=== PATIENT | male | born 1940 | race Caucasian/White ===

== ENCOUNTER → 2016-12-15 | Outpatient (CLI) | payer OTHER ==
[2016-02-03 17:04] VITALS: BP 170/82
== END ==
LOC: LAB 15:26
PROVIDERS: ATTEND Specialist
DX: M17.0 Bilateral primary osteoarthritis of knee (principal); Z96.651 Presence of right artificial knee joint
CPT/HCPCS: 36415; 85652; 86140

== ENCOUNTER 2017-06-20 16:56 | Observation (INO) | payer OTHER ==
[2017-06-20] MEDS ORDERED: TUSSIONEX PENNKINETIC SUSP PO PRN (17:41)
[2017-06-20] MEDS ORDERED: ZOFRAN INJ 4 MG VIAL IVP PRN (17:41)
[2017-06-20] MEDS ORDERED: NORCO 5/325 MG TAB PO PRN (17:41)
[2017-06-20 19:01] LABS: BASOPHILS % (AUTO) 0.3 % (0.2-1.0); HEMATOCRIT 35.9 % (42.0-54.0); HEMOGLOBIN 12.5 g/dL (13.5-18.0); LYMPHOCYTES # (AUTO) 0.5 X10^3/uL (1.3-2.9); LYMPHOCYTES % (AUTO) 5.3 % (21.0-51.0); MEAN CORPUSCULAR HEMOGLOBIN 28.2 pg (27.0-34.0); MEAN CORPUSCULAR HGB CONC 34.8 g/dL (33.0-35.0); MONOCYTES # (AUTO) 0.9 x10^3/uL (0.3-0.8); MONOCYTES % (AUTO) 10.7 % (0.0-13.0); NEUTROPHILS # (AUTO) 7.3 x10^3/uL (2.2-4.8); NEUTROPHILS % (AUTO) 83.7 % (42.0-75.0); PLATELET COUNT 165 X10^3/uL (150.0-450.0); RED BLOOD COUNT 4.43 X10^6/uL (4.7-6.0); RED CELL DISTRIBUTION WIDTH 14.1 % (11.6-16.5); WHITE BLOOD COUNT 8.7 X10^3/uL (3.6-10.0)
[2017-06-20 19:17] LABS: ALANINE AMINOTRANSFERASE 21 Units/L (12-78); ALBUMIN 3.7 g/dL (3.4-5.0); ALKALINE PHOSPHATASE 36 Units/L (46-116); ASPARTATE AMINO TRANSFERASE 33 Units/L (15-37); BLOOD UREA NITROGEN 34 mg/dL (7-18); CALCIUM 8.7 mg/dL (8.5-10.1); CARBON DIOXIDE 26.1 mmol/L (21-32); CHLORIDE 93 mmol/L (98-107); COR NA(FOR HYPERGLY) 134 mmol/L (136-145); CREATININE 1.44 mg/dL (0.70-1.30); SODIUM 131 mmol/L (136-145); TOTAL PROTEIN 7.9 g/dL (6.4-8.2); eGFR BLACK RACES > 60 (>60); eGFR NON BLACK RACES 51 (>60)
[2017-06-20] MEDS ORDERED: SALINE 3% 15 ML NEB TX NEB ONE (19:31)
[2017-06-20 19:33] VITALS: BMI 28.7
[2017-06-20] MEDS ORDERED: PREVNAR 13 IM ONE (19:33)
[2017-06-20] MEDS ORDERED: PHARMACY CONSULT - DOSE _____ XX SCH (20:00)
[2017-06-20] MEDS: DUONEB 0.5 MG/3 MG NEB SCH (20:15)
[2017-06-20] MEDS ORDERED: LEVAQUIN PREMIX IV 500 MG 500 MG/100 ML BAG IV ONE (21:00)
[2017-06-20] MEDS ORDERED: FORTAZ or TAZICEF INJ 1 GM in NS 50 ML IV + SPIKE MINIBAG* 50 ML IV SCH (21:00)
[2017-06-20] MEDS: NS 1000 ML 1,000 ML IV SCH (21:43)
[2017-06-20] MEDS: ROBITUSSIN DM PO SCH (22:00)
[2017-06-21] MEDS: DUONEB 0.5 MG/3 MG NEB SCH ×5 (00:28→20:41)
[2017-06-21] MEDS ORDERED: PREVNAR 13 IM ONE (00:29)
[2017-06-21] MEDS: TYLENOL 325 MG TAB PO PRN (01:59)
[2017-06-21 06:20] LABS: BASOPHILS % (AUTO) 0.2 % (0.2-1.0); HEMATOCRIT 31.4 % (42.0-54.0); LYMPHOCYTES # (AUTO) 0.8 X10^3/uL (1.3-2.9); LYMPHOCYTES % (AUTO) 14.2 % (21.0-51.0); MEAN CORPUSCULAR HEMOGLOBIN 28.5 pg (27.0-34.0); MEAN CORPUSCULAR HGB CONC 35.2 g/dL (33.0-35.0); MEAN CORPUSCULAR VOLUME 80.8 fL (80.0-100.0); MEAN PLATELET VOLUME 7.3 fL (7.4-11.0); MONOCYTES # (AUTO) 0.8 x10^3/uL (0.3-0.8); MONOCYTES % (AUTO) 13.4 % (0.0-13.0); NEUTROPHILS # (AUTO) 4.3 x10^3/uL (2.2-4.8); NEUTROPHILS % (AUTO) 72.2 % (42.0-75.0); PLATELET COUNT 138 X10^3/uL (150.0-450.0); RED BLOOD COUNT 3.88 X10^6/uL (4.7-6.0); RED CELL DISTRIBUTION WIDTH 13.8 % (11.6-16.5)
[2017-06-21 06:50] LABS: ALANINE AMINOTRANSFERASE 19 Units/L (12-78); ALKALINE PHOSPHATASE 29 Units/L (46-116); ASPARTATE AMINO TRANSFERASE 33 Units/L (15-37); BLOOD UREA NITROGEN 27 mg/dL (7-18); CALCIUM 8.3 mg/dL (8.5-10.1); CARBON DIOXIDE 22.7 mmol/L (21-32); CHLORIDE 98 mmol/L (98-107); COR CA(FOR HYPOALB) 9.1 mg/dL (8.5-10.1); COR NA(FOR HYPERGLY) 134 mmol/L (136-145); CREATININE 1.06 mg/dL (0.70-1.30); SODIUM 132 mmol/L (136-145); TOTAL PROTEIN 6.7 g/dL (6.4-8.2); eGFR BLACK RACES > 60 (>60); eGFR NON BLACK RACES > 60 (>60)
--- NOTE | 2017-06-21 07:08 | RAD ---
HISTORY: Injury, fall, right rib pain Study: Right ribs, PA and lateral chest Comparison: 04/21/2010 report Findings: The heart is within normal limits in size. The mag are normal. The lung lazcano are clear. No pleural effusions are identified. No pneumothorax is present. The right ribs are intact. IMPRESSION: Intact right ribs Lungs clear Reported By:
--- NOTE | 2017-06-21 07:29 | RAD ---
HISTORY: Shortness of breath Study: Chest AP portable Comparison: 06/20/2017 Findings: The trachea is midline. The cardiac silhouette is unremarkable. The lungs are clear without focal i nfiltrate or effusion. The bony thorax is unremarkable. IMPRESSION: 1. No acute cardiopulmonary disease. Reported By:
[2017-06-21] MEDS: ROBITUSSIN DM PO SCH ×4 (08:37→21:36)
[2017-06-21] MEDS: FORTAZ or TAZICEF INJ 1 GM in NS 50 ML IV + SPIKE MINIBAG* 50 ML IV SCH ×3 (08:37→21:36)
[2017-06-21] MEDS ORDERED: LEVAQUIN PREMIX IV 750 MG 750 MG/150 ML BAG IV SCH (09:00)
[2017-06-21 13:48] LABS: CRYPTOSPORIDIUM PARVUM ANTIGEN NEGATIVE (NEGATIVE); GIARDIA LAMBLIA ANTIGEN NEGATIVE (NEGATIVE)
[2017-06-21] MEDS: NS 1000 ML 1,000 ML IV SCH (14:27)
[2017-06-21] MEDS: HumuLIN R SUBCUT PRN ×2 (16:40→21:36)
--- NOTE | 2017-06-21 16:48 | DR.UPDATE ---
H&P Update History and Physical Update: PATIENT WAS SEEN IN THE OFFICE ON 06/20/17. A H&P WAS COMPLETED PRIOR TO ADMISSION. PATIENT ALSO HAD COMPLAINTS OF COUGH AND SHORTNESS OF BREATH. BILATERAL RHONCHI NOTED TO AUSCULTATION. PATIENT WAS ADMITTED ON THE PNEUMONIA PROTOCOL. Changes noted: NO Yes with the following:
--- NOTE | 2017-06-21 17:09 | CT ---
HISTORY: Orthostatics symptoms. Fall without loss of consciousness. Study: Computed tomography of the brain: Multiple axial images were obtained throughout the brain. Intravascular contrast was not administered. Radiation dose reduction techniques utilized. Comparison: None Findings: Overall examination of the brain reveals mild to moderate cerebral atrophy and moderate white matter disease. Mild cerebellar atrophy is noted. I see no evidence of cortical effacement. The burgess whit e differentiation is well maintained. I see no evidence of subarachnoid hemorrhage, subdural hematom a or epidural hematoma. The calvarium appears be intact. The frontal sinuses are clear. The orbits as visualized are clear. Minimal opacification is noted in a few ethmoid air cells. The sphenoid s inus is clear. There is a small polyp versus mucous retention cyst in the floor of the left maxillar y sinus. Moderately severe calcification is noted in the carotid siphon. The mastoids are hypo aera ileana but clear. The IAC's are symmetric. The pituitary fossa is normal. IMPRESSION: 1. Moderate cerebral atrophy and moderate white matter disease with mild cerebellar atrophy. 2. I see no evidence of acute intracranial hemorrhage or infarction. 3. Minimal sinus disease. Reported By:
[2017-06-21] MEDS ORDERED: NS 50 ML IV 50 ML IV ONE (20:11)
[2017-06-21] MEDS ORDERED: FORTAZ or TAZICEF INJ ONE (20:12)
--- NOTE | 2017-06-21 20:45 | PCM.PROG ---
Progress Note - Progress Note for Day of Date: 06/21/17 - Subjective Subjective: WAS ADMITTED FOR BRONCHOPNEUMONIA, RIGHT SIDE RIB PAIN, AND GENERALIZED WEAKNESS. TODAY, HE IS ALERT AND ORIENTED, LYING IN BED ON MORNING ROUNDS. PATIENT'S IS AT BEDSIDE. HE IS NOTED WITH COMPLAINTS OF SHORTNESS OF BREATH AND CONTINUES WITH PAIN TO THE RIGHT SIDE RIBS. PATIENT REPORTS FALLING OVER THE WEEKEND. PATIENT REPORTS THAT WEAKNESS HAS SOMEWHAT IMPROVED SINCE YESTERDAY, HOWEVER, HE CONTINUES WITH UNSTEADY GAIT. HE REPORTS A NON-PRODUCTIVE COUGH AT THIS TIME AND INABILITY TO TAKE DEEP BREATHS. ON EXAMINATION, LUNGS ARE NOTED WITH RHONCHI BILATERALLY TO AUSCULTATION. ABDOMEN IS ROUND, SOFT, AND NON-TENDER WITH HYPERACTIVE BOWEL SOUNDS NOTED IN ALL QUADRANTS. HE REPORTS DIARRHEA AND VOMITING FOR 3 DAYS PRIOR TO ADMISSION. HIS VITAL SIGNS THIS MORNING ARE 100.5-80-20-97% RA, 128/70. PATIENT'S TEMPERATURE WAS 102.1 AT 2AM. ABNORMAL LAB VALUES THIS MORNING INCLUDE THE FOLLOWING: RBC 3.88, HGB 11.0, HCT 31.4, SODIUM 132, POTASSIUM 3.1, BUN 27, GLUCOSE 197, CALCIUM 8.3, ALK PHOS 29, ALBUMIN 3.0, A/G RATIO 0.8. STOOL STUDIES WERE OBTAINED. STOOL CULTURES PENDING. SPUTUM CULTURES REPORT GROWTH OF GRAM POSITIVE RODS, GRAM POSITIVE COCCI, AND GRAM NEGATIVE DIPLOCOCCI. A CHEST XRAY WAS OBTAINED THIS MORNING AND REPORT NO ACUTE CARDIOPULMONARY DISEASE. A BRAIN CT WAS ALSO OBTAINED TODAY. IT REPORTED MODERATE CEREBRAL ATROPHY AND MODERATE WHITE MATTER DISEASE WITH MILD CEREBELLAR ATROPHY. NO EVIDENCE OF ACUTE INTRACRANIAL HEMORRHAGE OR INFARCTION. MINIMAL SINUS DISEASE. RIB SERIES THAT WAS OBTAINED ON ADMISSION REPORTED NEGATIVE FOR ACUTE FRACTURE. TODAY, WE WILL CONTINUE WITH CURRENT PLAN OF CARE FOR TREATMENT OF BRONCHOPNEUMONIA. WE WILL CONTINUE WITH IV FLUIDS FOR DEHYDRATION. WE PLAN TO FOLLOW UP WITH AM LABS AND CHEST XRAY AND CONTINUE TO MONITOR PATIENT. - Past Medical Family Social History Past Med/Fam/Surg Hx: No changes since H&P Allergies: Allergies No Known Drug Allergies Allergy (Verified 06/20/17 17:57) - Review of Systems ROS: No change since H&P - Vital Signs and I&O's Vital Signs: Temperature 100.4 F Pulse Rate [Left Brachial] 88 Pulse Rate 82 Respiratory Rate 20 Blood Pressure [Right Arm] 118/62 Blood Pressure [Left Arm] 139/77 Blood Pressure 170/82 O2 Sat by Pulse Oximetry 96 Intake and Output: Intake & Output 06/19/17 06/20/17 06/21/17 06/22/17 11:59 11:59 11:59 11:59 Intake Total 750 1458 Output Total 550 600 Balance 200 858 - Physical Exam Oriented: Normal Eyes: Normal. negative: Blurred Vision, Diplopia, Photophobia Ear: Normal. negative: Abrasion, Laceration Nose: Normal Throat: Dry Respiratory: Right, Left, Generalized, Rhonchi Cardiovascular: Normal : Normal Auscultation: Bowel Sounds: Increased Palpation: Normal Tenderness: Normal. negative: Rebound, Guarding, Rigidity Skin: Normal. negative: Rash, Diaphoresis, Wound Musculoskeletal: Right (RIGHT SIDE RIB PAIN ), Tender Psychiatric: Normal Mood Description: Calm Affect: Normal Speech Pattern: Clear, Appropriate - Laboratory and Diagnostics Result Diagrams: 06/21/17 05:53 06/21/17 05:53 Labs: 06/21/17 10:53 Stool - Final 06/20/17 21:40 Sputum - Expectorated Sputum Sputum Culture - Preliminary 06/20/17 21:40 Sputum - Expectorated Sputum - Final Laboratory WBC 6.0 X10^3/uL (3.6-10.0) 06/21/17 05:53 RBC 3.88 X10^6/uL (4.7-6.0) L 06/21/17 05:53 Hgb 11.0 g/dL (13.5-18.0) L 06/21/17 05:53 Hct 31.4 % (42.0-54.0) L 06/21/17 05:53 MCV 80.8 fL (80.0-100.0) 06/21/17 05:53 MCH 28.5 pg (27.0-34.0) 06/21/17 05:53 MCHC 35.2 g/dL (33.0-35.0) H 06/21/17 05:53 RDW 13.8 % (11.6-16.5) 06/21/17 05:53 Plt Count 138 X10^3/uL (150.0-450.0) L 06/21/17 05:53 MPV 7.3 fL (7.4-11.0) L 06/21/17 05:53 Neut % 72.2 % (42.0-75.0) 06/21/17 05:53 Lymph % 14.2 % (21.0-51.0) L 06/21/17 05:53 [place] % 13.4 % (0.0-13.0) H 06/21/17 05:53 Eos % 0.0 % (0.9-2.9) L 06/21/17 05:53 Baso % 0.2 % (0.2-1.0) 06/21/17 05:53 Neut # 4.3 x10^3/uL (2.2-4.8) 06/21/17 05:53 Lymph # 0.8 X10^3/uL (1.3-2.9) L 06/21/17 05:53 [place] # 0.8 x10^3/uL (0.3-0.8) 06/21/17 05:53 Eos # 0.0 x10^3/uL (0.0-0.2) 06/21/17 05:53 Baso # 0.0 X10^3/uL (0.0-0.1) 06/21/17 05:53 Absolute Nucleated RBC 0.0 /100WBC 06/21/17 05:53 Sodium 132 mmol/L (136-145) L 06/21/17 05:53 Corrected Sodium 134 mmol/L (136-145) L 06/21/17 05:53 Potassium 3.1 mmol/L (3.5-5.1) L 06/21/17 05:53 Chloride 98 mmol/L (98-107) 06/21/17 05:53 Carbon Dioxide 22.7 mmol/L (21-32) 06/21/17 05:53 BUN 27 mg/dL (7-18) H 06/21/17 05:53 Creatinine 1.06 mg/dL (0.70-1.30) 06/21/17 05:53 Est GFR (MDRD) Af Amer > 60 (>60) 06/21/17 05:53 Est GFR (MDRD) Non-Af > 60 (>60) 06/21/17 05:53 Glucose 197 mg/dL (65-99) H 06/21/17 05:53 POC Glucose (mg/dL) 223 mg/dL (65-99) H 06/21/17 16:23 Calcium 8.3 mg/dL (8.5-10.1) L 06/21/17 05:53 Corrected Calcium 9.1 mg/dL (8.5-10.1) 06/21/17 05:53 Total Bilirubin 0.50 mg/dL (0.2-1.0) 06/21/17 05:53 AST 33 Units/L (15-37) 06/21/17 05:53 ALT 19 Units/L (12-78) 06/21/17 05:53 Alkaline Phosphatase 29 Units/L (46-116) L 06/21/17 05:53 Total Protein 6.7 g/dL (6.4-8.2) 06/21/17 05:53 Albumin 3.0 g/dL (3.4-5.0) L 06/21/17 05:53 Globulin 3.7 g/dL (2.5-4.5) 06/21/17 05:53 Albumin/Globulin Ratio 0.8 Ratio (1.1-2.1) L 06/21/17 05:53 Stool Description Container 06/21/17 10:53 Stl Occult Blood (IFOB) Negative (NEGATIVE) 06/21/17 10:53 Stl C. diff Tox B Gene Negative (NEGATIVE) 06/21/17 10:53 Stl C. diff 027-NAP1-BI Negative (NEGATIVE) 06/21/17 10:53 Cryptosporid parvum Ag Negative (NEGATIVE) 06/21/17 10:53 E. histolytica Antigen Negative (NEGATIVE) 06/21/17 10:53 Giardia lamblia Ag Negative (NEGATIVE) 06/21/17 10:53 - Plan (1) Bronchopneumonia Status: Acute Plan: CONTINUE FORTAZ 1GM IV Q8H, CONTINUE LEVAQUIN 250MG IV DAILY, CONTINUE DUONEBS, CONTINUE TUSSIONEX AND ROBITUSSIN FOR COUGH, CONTINUE SUPPLEMENTAL OXYGEN, CONTINUE TO MONITOR (2) Dehydration Status: Acute Plan: CONTINUE NORMAL SALINE AT 75ML/HR. CONTINUE TO MONITOR (3) Generalized weakness Status: Acute Plan: CONTINUE NORMAL SALINE AT 75ML/HR, PT/OT CONSULT, CONTINUE TO MONITOR
[2017-06-21] MEDS: SNACK - Diabetic Appropriate PO SCH (21:16)
[2017-06-21] MEDS: LEVAQUIN PREMIX IV 250 MG 250 MG/50 ML BAG IV SCH (21:16)
[2017-06-21] MEDS ORDERED: PATIENT'S HOME MEDICATION (Metformin Hcl [Metformin Hcl] 1,000 MG) PO SCH (22:00)
[2017-06-21] MEDS: GLUCOPHAGE PO SCH (23:09)
[2017-06-22] MEDS: DUONEB 0.5 MG/3 MG NEB SCH ×6 (01:10→20:42)
[2017-06-22] MEDS: NS 1000 ML 1,000 ML IV SCH ×3 (03:28→17:33)
[2017-06-22] MEDS ORDERED: FORTAZ or TAZICEF INJ ONE (05:39)
[2017-06-22] MEDS ORDERED: NS 50 ML IV 50 ML IV ONE (05:39)
[2017-06-22] MEDS ORDERED: GLUCOPHAGE ONE ×2 (05:46→17:16)
[2017-06-22 05:47] LABS: BASOPHILS % (AUTO) 0 % (0.2-1.0); HEMATOCRIT 30.8 % (42.0-54.0); LYMPHOCYTES # (AUTO) 0.7 X10^3/uL (1.3-2.9); LYMPHOCYTES % (AUTO) 15.6 % (21.0-51.0); MEAN CORPUSCULAR HEMOGLOBIN 28.8 pg (27.0-34.0); MEAN CORPUSCULAR HGB CONC 35.8 g/dL (33.0-35.0); MEAN CORPUSCULAR VOLUME 80.6 fL (80.0-100.0); MEAN PLATELET VOLUME 7.3 fL (7.4-11.0); MONOCYTES # (AUTO) 0.8 x10^3/uL (0.3-0.8); MONOCYTES % (AUTO) 17.5 % (0.0-13.0); NEUTROPHILS % (AUTO) 66.9 % (42.0-75.0); PLATELET COUNT 142 X10^3/uL (150.0-450.0); RED BLOOD COUNT 3.82 X10^6/uL (4.7-6.0); RED CELL DISTRIBUTION WIDTH 13.6 % (11.6-16.5); WHITE BLOOD COUNT 4.5 X10^3/uL (3.6-10.0)
[2017-06-22] MEDS: TYLENOL 325 MG TAB PO PRN (05:50)
[2017-06-22] MEDS: FORTAZ or TAZICEF INJ 1 GM in NS 50 ML IV + SPIKE MINIBAG* 50 ML IV SCH (05:56)
[2017-06-22] MEDS: HumuLIN R SUBCUT PRN ×3 (05:57→17:01)
[2017-06-22 06:22] LABS: ALANINE AMINOTRANSFERASE 18 Units/L (12-78); ALBUMIN 2.9 g/dL (3.4-5.0); ALKALINE PHOSPHATASE 29 Units/L (46-116); ASPARTATE AMINO TRANSFERASE 31 Units/L (15-37); BLOOD UREA NITROGEN 14 mg/dL (7-18); CALCIUM 7.9 mg/dL (8.5-10.1); CARBON DIOXIDE 25.8 mmol/L (21-32); CHLORIDE 100 mmol/L (98-107); COR CA(FOR HYPOALB) 8.8 mg/dL (8.5-10.1); COR NA(FOR HYPERGLY) 136 mmol/L (136-145); CREATININE 0.93 mg/dL (0.70-1.30); SODIUM 135 mmol/L (136-145); TOTAL PROTEIN 6.7 g/dL (6.4-8.2); eGFR BLACK RACES > 60 (>60); eGFR NON BLACK RACES > 60 (>60)
[2017-06-22] MEDS: GLUCOPHAGE PO SCH ×2 (06:33→17:37)
[2017-06-22] MEDS ORDERED: MAG-OX TAB PO PRN ×2 (06:42→06:52)
[2017-06-22] MEDS ORDERED: K-RIDER 10 MEQ/NS 100 ML 10 MEQ/100 ML BAG IV PRN ×2 (06:42→06:52)
[2017-06-22] MEDS ORDERED: MAGNESIUM SULFATE 1 GM/100 mL PREMIX 1 GM/100 ML BAG IV PRN ×2 (06:42→06:52)
[2017-06-22] MEDS ORDERED: K-LYTE EFFERVESCENT PO PRN (06:42)
[2017-06-22] MEDS ORDERED: GLUCOPHAGE PO SCH (07:00)
[2017-06-22] MEDS: K-LYTE EFFERVESCENT PO PRN ×2 (07:43→12:30)
[2017-06-22] MEDS: ASPIRIN EC 81 MG PO SCH (08:15)
--- NOTE | 2017-06-22 08:49 | RAD ---
Findings: Examination: Chest, portable AP History: Cough and SOB Comparison reference: 06/21/2017 Findings: Continued normal heart size with clear lungs. There is no evidence for pneumothorax, pneumo max or large pleural effusion. Impression: No acute abnormality demonstrated. Reported By:
[2017-06-22] MEDS ORDERED: LISINOPRIL 30 MG PO SCH (09:00)
[2017-06-22] MEDS: ROBITUSSIN DM PO SCH ×5 (09:14→22:50)
[2017-06-22] MEDS: ZESTRIL TAB 10 MG PO SCH ×2 (09:15→21:44)
[2017-06-22] MEDS: FORTAZ or TAZICEF INJ 1 GM in NS 50 ML IV 50 ML IV SCH ×2 (13:54→21:43)
--- NOTE | 2017-06-22 14:39 | RAD ---
Examination: KUB History: Abdominal pain and distention Findings: There is moderately severe distention of the colon including portions of the rectosigmoid. Gas is present in the rectum. The retroperitoneal structures are obscured. There is no evidence for m ass, ascites or pathologic calcification. Impression: Intestinal distention is most consistent with ileus. A distal colon obstruction is not ex cluded, but is considered less likely. Correlate clinically with follow-up imaging as appropriate. Reported By:
[2017-06-22] MEDS ORDERED: NORVASC TAB 5 MG PO SCH (21:00)
[2017-06-22] MEDS ORDERED: FLORINEF PO SCH (21:00)
[2017-06-22] MEDS ORDERED: PRAVACHOL PO SCH (21:00)
[2017-06-22] MEDS: LEVAQUIN PREMIX IV 250 MG 250 MG/50 ML BAG IV SCH (21:44)
[2017-06-22] MEDS: SNACK - Diabetic Appropriate PO SCH (21:49)
[2017-06-23 05:22] LABS: BASOPHILS % (AUTO) 0.4 % (0.2-1.0); EOSINOPHILS # (AUTO) 0.2 x10^3/uL (0.0-0.2); EOSINOPHILS % (AUTO) 4.5 % (0.9-2.9); HEMATOCRIT 30.7 % (42.0-54.0); HEMOGLOBIN 10.7 g/dL (13.5-18.0); LYMPHOCYTES # (AUTO) 0.8 X10^3/uL (1.3-2.9); LYMPHOCYTES % (AUTO) 15.9 % (21.0-51.0); MEAN CORPUSCULAR HEMOGLOBIN 28.2 pg (27.0-34.0); MEAN CORPUSCULAR HGB CONC 34.7 g/dL (33.0-35.0); MEAN CORPUSCULAR VOLUME 81.3 fL (80.0-100.0); MEAN PLATELET VOLUME 7.3 fL (7.4-11.0); MONOCYTES # (AUTO) 0.7 x10^3/uL (0.3-0.8); MONOCYTES % (AUTO) 12.7 % (0.0-13.0); NEUTROPHILS # (AUTO) 3.4 x10^3/uL (2.2-4.8); NEUTROPHILS % (AUTO) 66.5 % (42.0-75.0); PLATELET COUNT 155 X10^3/uL (150.0-450.0); RED BLOOD COUNT 3.77 X10^6/uL (4.7-6.0); RED CELL DISTRIBUTION WIDTH 13.8 % (11.6-16.5); WHITE BLOOD COUNT 5.1 X10^3/uL (3.6-10.0)
[2017-06-23] MEDS ORDERED: GLUCOPHAGE ONE (05:29)
[2017-06-23] MEDS: DUONEB 0.5 MG/3 MG NEB SCH ×2 (05:30→09:39)
[2017-06-23] MEDS: FORTAZ or TAZICEF INJ 1 GM in NS 50 ML IV 50 ML IV SCH (05:35)
[2017-06-23 05:36] LABS: ALANINE AMINOTRANSFERASE 21 Units/L (12-78); ALBUMIN 2.9 g/dL (3.4-5.0); ALKALINE PHOSPHATASE 30 Units/L (46-116); ASPARTATE AMINO TRANSFERASE 31 Units/L (15-37); BLOOD UREA NITROGEN 11 mg/dL (7-18); CALCIUM 8.4 mg/dL (8.5-10.1); CARBON DIOXIDE 24.9 mmol/L (21-32); CHLORIDE 102 mmol/L (98-107); COR CA(FOR HYPOALB) 9.3 mg/dL (8.5-10.1); COR NA(FOR HYPERGLY) 138 mmol/L (136-145); CREATININE 0.91 mg/dL (0.70-1.30); MAGNESIUM 1.4 mg/dL (1.7-2.9); SODIUM 136 mmol/L (136-145); TOTAL PROTEIN 6.6 g/dL (6.4-8.2); eGFR BLACK RACES > 60 (>60); eGFR NON BLACK RACES > 60 (>60)
[2017-06-23] MEDS: HumuLIN R SUBCUT PRN (05:55)
[2017-06-23] MEDS: NS 1000 ML 1,000 ML IV SCH (05:56)
[2017-06-23] MEDS: GLUCOPHAGE PO SCH (06:31)
[2017-06-23 08:13] VITALS: BP 144/76
[2017-06-23] MEDS: ROBITUSSIN DM PO SCH (09:42)
[2017-06-23] MEDS: ASPIRIN EC 81 MG PO SCH (09:42)
[2017-06-23] MEDS: ZESTRIL TAB 10 MG PO SCH (09:43)
--- NOTE | 2017-06-23 10:08 | RAD ---
Examination: AP chest History: Fell, bronchopneumonia, right side rib pain Comparison reference: 06/22/2017 Findings: Continued normal heart size. Pulmonary volumes are reduced by incomplete inspiration and no nstandard projection. There is minimal atelectasis at the right base. There is no evidence for pleura l fluid or pneumothorax. Impression: Minimal right basal atelectasis, accentuated by diminished pulmonary volumes. Reported By:
[2017-06-23] MEDS ORDERED: PREVNAR 13 IM ONE (10:37)
--- NOTE | 2017-06-23 12:45 | PCM.PROG ---
Progress Note - Progress Note for Day of Date: 06/22/17 - Subjective Subjective: WAS ADMITTED FOR BRONCHOPNEUMONIA, RIGHT SIDE RIB PAIN, AND GENERALIZED WEAKNESS. TODAY, HE IS ALERT AND ORIENTED, LYING IN BED ON MORNING ROUNDS. PATIENT'S IS AT BEDSIDE. HE CONTINUES WITH COMPLAINTS OF SHORTNESS OF BREATH. PATIENT IS ALSO NOTED WITH COMPLAINTS OF DIFFUSE ABDOMINAL PAIN THIS MORNING. HE CONTINUED WITH COUGH AND SEVERAL LOOSE STOOLS YESTERDAY AND THROUGHOUT THE NIGHT. PATIENT ADMITS TO HAVING MORE STRENGTH TODAY THAN HE HAS IN THE PAST SEVERAL DAYS. PATIENT AND SPOUSE REPORTS THAT PATIENT HAS BEEN AMBULATING IN THE ROOM WITHOUT ASSISTANCE. ON EXAMINATION, LUNGS SOUNDS ARE DIMINISHED THROUGHOUT. ABDOMEN IS ROUND, SOFT, AND NOTED WITH DIFFUSE TENDERNESS ON PALPATION. HYPERACTIVE BOWEL SOUNDS ARE NOTED IN ALL QUADRANTS. STOOL STUDIES WERE OBTAINED AND REPORTED NEGATIVE. HIS VITAL SIGNS THIS MORNING ARE 98.1-73-20-92%-143/78. ABNORMAL LAB VALUES THIS MORNING INCLUDE THE FOLLOWING: RBC 3.82, HGB 11.0, HCT 30.8, SODIUM 135, POTASSIUM 3.0, BUN 14, GLUCOSE 142, CALCIUM 7.9, ALK PHOS 29, ALBUMIN 2.9, A/G RATIO 0.8, MAGNESIUM 1.4. SPUTUM CULTURES REPORT GROWTH OF GRAM POSITIVE RODS, GRAM POSITIVE COCCI, AND GRAM NEGATIVE DIPLOCOCCI. FINAL REPORT AND SENSITIVITY IS PENDING. A CHEST XRAY WAS OBTAINED THIS MORNING AND REPORT NO ACUTE ABNORMALITY. A KUB WAS OBTAINED FOR COMPLAINTS OF ABDOMINAL PAIN AND REPORTED INTESTINAL DISTENTION IS MOST CONSISTENT WITH ILEUS. A DISTAL COLON OBSTRUCTION IS NOT EXCLUDED, BUT IS CONSIDERED LESS LIKELY. TODAY, WE WILL CONTINUE WITH CURRENT PLAN OF CARE. WE PLAN TO FOLLOW UP WITH AM LABS AND CHEST XRAY AND CONTINUE TO MONITOR PATIENT. - Past Medical Family Social History Past Med/Fam/Surg Hx: No changes since H&P Allergies: Allergies No Known Drug Allergies Allergy (Verified 06/20/17 17:57) - Review of Systems ROS: No change since H&P - Vital Signs and I&O's Vital Signs: Temperature 98.6 F Pulse Rate [Left Brachial] 62 Pulse Rate 72 Respiratory Rate 18 Blood Pressure [Right Arm] 144/76 Blood Pressure [Left Arm] 161/72 Blood Pressure 170/82 O2 Sat by Pulse Oximetry 94 Intake and Output: Intake & Output 10/31/17 11/01/17 11/02/17 11/03/17 11:59 11:59 11:59 11:59 Intake Total 750 1818 2200 Output Total 550 800 Balance 200 1018 2200 - Physical Exam Oriented: Normal Eyes: Normal. negative: Blurred Vision, Diplopia, Photophobia Ear: Normal. negative: Abrasion, Laceration Nose: Normal Throat: Dry Respiratory: Right, Left, Generalized, Rhonchi Cardiovascular: Normal : Normal Auscultation: Bowel Sounds: Increased Palpation: Normal Tenderness: Diffuse. negative: Rebound, Guarding, Rigidity Skin: Normal. negative: Rash, Diaphoresis, Wound Musculoskeletal: Right (RIGHT SIDE RIB PAIN ), Tender Psychiatric: Normal Mood Description: Calm Affect: Normal Speech Pattern: Clear, Appropriate - Laboratory and Diagnostics Result Diagrams: 06/23/17 03:30 06/23/17 03:30 Labs: 06/20/17 18:43 Blood Blood Culture - Preliminary 06/20/17 18:41 Blood Blood Culture - Preliminary 06/21/17 10:53 Stool Stool Culture - Preliminary 06/21/17 10:53 Stool - Final 06/20/17 21:40 Sputum - Expectorated Sputum Sputum Culture - Final Enterobacter Cloacae 06/20/17 21:40 Sputum - Expectorated Sputum - Final Laboratory WBC 5.1 X10^3/uL (3.6-10.0) 06/23/17 03:30 RBC 3.77 X10^6/uL (4.7-6.0) L 06/23/17 03:30 Hgb 10.7 g/dL (13.5-18.0) L 06/23/17 03:30 Hct 30.7 % (42.0-54.0) L 06/23/17 03:30 MCV 81.3 fL (80.0-100.0) 06/23/17 03:30 MCH 28.2 pg (27.0-34.0) 06/23/17 03:30 MCHC 34.7 g/dL (33.0-35.0) 06/23/17 03:30 RDW 13.8 % (11.6-16.5) 06/23/17 03:30 Plt Count 155 X10^3/uL (150.0-450.0) 06/23/17 03:30 MPV 7.3 fL (7.4-11.0) L 06/23/17 03:30 Neut % 66.5 % (42.0-75.0) 06/23/17 03:30 Lymph % 15.9 % (21.0-51.0) L 06/23/17 03:30 [place] % 12.7 % (0.0-13.0) 06/23/17 03:30 Eos % 4.5 % (0.9-2.9) H 06/23/17 03:30 Baso % 0.4 % (0.2-1.0) 06/23/17 03:30 Neut # 3.4 x10^3/uL (2.2-4.8) 06/23/17 03:30 Lymph # 0.8 X10^3/uL (1.3-2.9) L 06/23/17 03:30 [place] # 0.7 x10^3/uL (0.3-0.8) 06/23/17 03:30 Eos # 0.2 x10^3/uL (0.0-0.2) 06/23/17 03:30 Baso # 0.0 X10^3/uL (0.0-0.1) 06/23/17 03:30 Absolute Nucleated RBC 0.0 /100WBC 06/23/17 03:30 Sodium 136 mmol/L (136-145) 06/23/17 03:30 Corrected Sodium 138 mmol/L (136-145) 06/23/17 03:30 Potassium 3.3 mmol/L (3.5-5.1) L 06/23/17 03:30 Chloride 102 mmol/L (98-107) 06/23/17 03:30 Carbon Dioxide 24.9 mmol/L (21-32) 06/23/17 03:30 BUN 11 mg/dL (7-18) 06/23/17 03:30 Creatinine 0.91 mg/dL (0.70-1.30) 06/23/17 03:30 Est GFR (MDRD) Af Amer > 60 (>60) 06/23/17 03:30 Est GFR (MDRD) Non-Af > 60 (>60) 06/23/17 03:30 Glucose 199 mg/dL (65-99) H 06/23/17 03:30 POC Glucose (mg/dL) 163 mg/dL (65-99) H 06/23/17 11:01 Calcium 8.4 mg/dL (8.5-10.1) L 06/23/17 03:30 Corrected Calcium 9.3 mg/dL (8.5-10.1) 06/23/17 03:30 Magnesium 1.4 mg/dL (1.7-2.9) L 06/23/17 03:30 Total Bilirubin 0.30 mg/dL (0.2-1.0) 06/23/17 03:30 AST 31 Units/L (15-37) 06/23/17 03:30 ALT 21 Units/L (12-78) 06/23/17 03:30 Alkaline Phosphatase 30 Units/L (46-116) L 06/23/17 03:30 Total Protein 6.6 g/dL (6.4-8.2) 06/23/17 03:30 Albumin 2.9 g/dL (3.4-5.0) L 06/23/17 03:30 Globulin 3.7 g/dL (2.5-4.5) 06/23/17 03:30 Albumin/Globulin Ratio 0.8 Ratio (1.1-2.1) L 06/23/17 03:30 Stool Description Container 06/21/17 10:53 Stl Occult Blood (IFOB) Negative (NEGATIVE) 06/21/17 10:53 Stl C. diff Tox B Gene Negative (NEGATIVE) 06/21/17 10:53 Stl C. diff 027-NAP1-BI Negative (NEGATIVE) 06/21/17 10:53 Cryptosporid parvum Ag Negative (NEGATIVE) 06/21/17 10:53 E. histolytica Antigen Negative (NEGATIVE) 06/21/17 10:53 Giardia lamblia Ag Negative (NEGATIVE) 06/21/17 10:53 - Plan (1) Bronchopneumonia Status: Acute Plan: CONTINUE FORTAZ 1GM IV Q8H, CONTINUE LEVAQUIN 250MG IV DAILY, CONTINUE DUONEBS, CONTINUE TUSSIONEX AND ROBITUSSIN FOR COUGH, CONTINUE SUPPLEMENTAL OXYGEN, CONTINUE TO MONITOR (2) Dehydration Status: Acute Plan: CONTINUE NORMAL SALINE AT 75ML/HR. CONTINUE TO MONITOR (3) Generalized weakness Status: Acute Plan: CONTINUE NORMAL SALINE AT 75ML/HR, PT/OT CONSULT, CONTINUE TO MONITOR (4) Abdominal pain Status: Acute Qualifiers: Abdominal location: generalized Qualified Code(s): R10.84 - Generalized abdominal pain Plan: OBTAIN KUB, CONTINUE TO MONITOR (5) Hypertension Status: Chronic Qualifiers: Hypertension type: essential hypertension Qualified Code(s): I10 - Essential (primary) hypertension Plan: CONTINUE LISINOPRIL, CONTINUE NORVASC, CONTINUE TO MONITOR (6) Diabetes Status: Acute Qualifiers: Diabetes mellitus type: type 2 Diabetes mellitus complication status: with unspecified complications 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
== END 2017-06-23 11:15 | disposition home or self-care (01) ==
LOC: INTOOBSV 16:56 → OBS 16:56 → MED/SURG 06-21 16:55
PROVIDERS: ADMIT Internal Medicine; ATTEND Internal Medicine
PROC: 3E0234Z Introduction of Serum, Toxoid and Vaccine into Muscle, Percutaneous Approach (ICD-10-PCS; 2017-06-21)
PROC: 3E0234Z Introduction of Serum, Toxoid and Vaccine into Muscle, Percutaneous Approach (ICD-10-PCS; principal; 2017-06-23)
DX: J16.8 Pneumonia due to other specified infectious organisms (principal); A02.0 Salmonella enteritis; R53.1 Weakness; R07.81 Pleurodynia; R29.6 Repeated falls; R06.02 Shortness of breath; R10.84 Generalized abdominal pain; E11.65 Type 2 diabetes mellitus with hyperglycemia; Z79.4 Long term (current) use of insulin; E78.2 Mixed hyperlipidemia; I10 Essential (primary) hypertension; Z23 Encounter for immunization
CPT/HCPCS: 36415; 70450; 71010; 71111; 74000; 80053; 82270; 83735; 84132; 85025; 87040; 87045; 87070; 87077; 87186; 87205; 87328; 87329; 87336; 87427; 87493; 87899; 94640; 94760; A4222; 90670; G0378; J0713; J1815; J1956; J7620

== ENCOUNTER → 2017-09-23 | Outpatient (CLI) | payer OTHER ==
--- NOTE | 2017-09-23 10:10 | RAD ---
History: Right knee pain Study: Right knee complete Findings: Multiple views of the right knee include a patellar view. [facility] Right total knee prosthesis remains in place unchanged in position. No fracture brennen ny destructive process or joint effusion is identified. Impression: Right total knee replacement. Reported By:
== END ==
LOC: RAD 08:45
PROVIDERS: ATTEND Specialist
DX: M17.10 Unilateral primary osteoarthritis, unspecified knee (principal); M25.561 Pain in right knee
CPT/HCPCS: 36415; 73564; 85652; 86140

== ENCOUNTER 2021-11-19 11:13 | Observation (INO) ==
--- NOTE | 2021-11-19 11:35 | DR.MBACK ---
HPI Time Seen Time Seen by Provider: 11/19/21 11:28 Complaint Chief Complaint Doctors Comments: 81 y/o male brought in via EMS for evaluation. Has been falling lately, hurt his right hip, low back region. Had x-rays that were reportedly negative. R hip "popped" recently, had decreased ability to get out of bed today. Family was able to get him to a recliner, then could not get him out of the recliner Pt with h/o dementia, poor historian. Currently denies pain or any complaints. Per family, no recent illness. COVID-19 Coronavirus risk:travel/contact w/high risk person: No Has patient experienced Coronavirus symptoms: No Reviewed Nurses Notes Review: Yes Source History Provided: Family Member PMH PMH Past Medical History: Dementia, Diabetes and Hypertension Past Surgical History: Yes Surgical History: Appendectomy and Ortho Surgery Family History Family Medical History: Cancer Social History Do you use any recreational Drugs:: No ROS Review of Systems Unable to Obtain Due To: Dementia PE Vital Signs Vitals: Temperature 97.6 F Pulse Rate 76 Respiratory Rate 22 Blood Pressure [Right Arm] 144/76 Blood Pressure [Left Arm] 161/72 Blood Pressure 185/95 O2 Sat by Pulse Oximetry 96 General Limitations: No Limitations General Appearance: Alert and In No Apparent Distress Eyes Eye exam: PERRL and EOMI ENT ENT Exam: Normal Exam Chest Chest Inspection: Normal Inspection Respiratory Respiratory Exam: Normal Lung Sounds Bilat; negative Accessory Muscle Use and Respiratory Distress Respiratory Exam: Bilateral: Clear to Auscultation Cardiovascular Cardiovascular Exam: Regular Rate, Normal Rhythm and Normal Heart Sounds Abdominal Exam Abdominal Exam: Normal Inspection, Normal Bowel Sounds and Soft; negative Tenderness Extremities Extremities Exam: Normal Inspection and Full ROM; negative Tenderness and Edema Back Back Exam: Normal Inspection; negative Tenderness Neurological Neurological Exam: Alert and CN II-XII Intact; negative Motor Sensory Deficit Skin Skin Exam: Warm and Dry MDM Differential Diagnosis Differential Diagnosis: Fracture and Musculoskeletal Pain COURSE Treatment Treatment: 81 y/o male falling recently, had difficulty getting out of bed today. + h/o dementia, denies c/o's at present, bubt not very reliable. Will check baseline labs, obtain CTs of lumbar, R hip. 1314 - labs acceptable. CT of R hip/pelvis without fracture. CT of lumbar spine with possible fracture of lat eral process of L1. Discussed with family, pt becoming more difficult to care for with limited mobility. Discussed with his attending, Dr Pink, will plan on admitting the pt, anticipate transfer to [place] for rehabilitation. [facility] Labs Reviewed Laboratory Results Reviewed?: Yes Result Diagrams: 11/19/21 12:00 11/19/21 12:00 Laboratory: WBC 6.4 X10^3/uL (3.6-10.0) 11/19/21 12:00 RBC 4.39 X10^6/uL (4.7-6.0) L 11/19/21 12:00 Hgb 12.0 g/dL (13.5-18.0) L 11/19/21 12:00 Hct 34.9 % (42.0-54.0) L 11/19/21 12:00 MCV 79.5 fL (80.0-100.0) L 11/19/21 12:00 MCH 27.3 pg (27.0-34.0) 11/19/21 12:00 MCHC 34.4 g/dL (33.0-35.0) 11/19/21 12:00 RDW 13.9 % (11.6-16.5) 11/19/21 12:00 Plt Count 215 X10^3/uL (150.0-450.0) 11/19/21 12:00 MPV 6.9 fL (7.4-11.0) L 11/19/21 12:00 Neut % (Auto) 66.3 % (42.0-75.0) 11/19/21 12:00 Lymph % (Auto) 21.6 % (21.0-51.0) 11/19/21 12:00 [place] % (Auto) 8.0 % (0.0-13.0) 11/19/21 12:00 Eos % (Auto) 1.9 % (0.9-2.9) 11/19/21 12:00 Baso % (Auto) 2.2 % (0.2-1.0) H 11/19/21 12:00 Neut # (Auto) 4.2 x10^3/uL (2.2-4.8) 11/19/21 12:00 Lymph # (Auto) 1.4 X10^3/uL (1.3-2.9) 11/19/21 12:00 [place] # (Auto) 0.5 x10^3/uL (0.3-0.8) 11/19/21 12:00 Eos # (Auto) 0.1 x10^3/uL (0.0-0.2) 11/19/21 12:00 Baso # (Auto) 0.1 X10^3/uL (0.0-0.1) 11/19/21 12:00 Absolute Nucleated RBC 0.0 /100WBC 11/19/21 12:00 Sodium 137 mmol/L (136-145) 11/19/21 12:00 Corrected Sodium 139 mmol/L (136-145) 11/19/21 12:00 Potassium 4.2 mmol/L (3.5-5.1) 11/19/21 12:00 Chloride 101 mmol/L (98-107) 11/19/21 12:00 Carbon Dioxide 22.6 mmol/L (21-32) 11/19/21 12:00 BUN 34 mg/dL (7-18) H 11/19/21 12:00 Creatinine 1.42 mg/dL (0.70-1.30) H 11/19/21 12:00 Est GFR (MDRD) Af Amer > 60 (>60) 11/19/21 12:00 Est GFR (MDRD) Non-Af 51 (>60) L 11/19/21 12:00 Glucose 170 mg/dL (65-99) H 11/19/21 12:00 Calcium 9.4 mg/dL (8.5-10.1) 11/19/21 12:00 Corrected Calcium TNP 11/19/21 12:00 Total Bilirubin 0.50 mg/dL (0.2-1.0) 11/19/21 12:00 AST 12 Units/L (15-37) L 11/19/21 12:00 ALT 6 Units/L (12-78) L 11/19/21 12:00 Alkaline Phosphatase 41 Units/L (46-116) L 11/19/21 12:00 Total Protein 7.8 g/dL (6.4-8.2) 11/19/21 12:00 Albumin 3.5 g/dL (3.4-5.0) 11/19/21 12:00 Globulin 4.3 g/dL (2.5-4.5) 11/19/21 12:00 Albumin/Globulin Ratio 0.8 Ratio (1.1-2.1) L 11/19/21 12:00 Other Results Comments: Labs acceptable XRAY XRAY Interpreted by: Radiologist X-ray Results: Possible non displaced fracture of L1 transverse fracture EKG Rate: 72 [place]: Normal (-18) Rhythm: NSR Block: IVCD Hypertrophy: LAE ST: Nonsp Opioid Opioid Risk Tool Age (Juan Luis box if 16-45): No History of Preadolescent Sexual Abuse: No Total: 0 Total Score Risk Category: Low Risk Copyright: Isaias CHRISTINE predicting aberrant behaviors Diagnosis Discharge Problem: Closed lumbar vertebral fracture Qualifiers: Encounter type: initial encounter Lumbar vertebra fracture level: L1 Fracture morphology: other fracture Qualified Code(s): S32.018A - Other fracture of first lumbar vertebra, initial encounter for closed fracture
[2021-11-19 11:36] VITALS: BMI 24.8
[2021-11-19 12:06] LABS: BASOPHILS # (AUTO) 0.1 X10^3/uL (0.0-0.1); BASOPHILS % (AUTO) 2.2 % (0.2-1.0); EOSINOPHILS # (AUTO) 0.1 x10^3/uL (0.0-0.2); EOSINOPHILS % (AUTO) 1.9 % (0.9-2.9); HEMATOCRIT 34.9 % (42.0-54.0); LYMPHOCYTES # (AUTO) 1.4 X10^3/uL (1.3-2.9); LYMPHOCYTES % (AUTO) 21.6 % (21.0-51.0); MEAN CORPUSCULAR HEMOGLOBIN 27.3 pg (27.0-34.0); MEAN CORPUSCULAR HGB CONC 34.4 g/dL (33.0-35.0); MEAN CORPUSCULAR VOLUME 79.5 fL (80.0-100.0); MEAN PLATELET VOLUME 6.9 fL (7.4-11.0); MONOCYTES # (AUTO) 0.5 x10^3/uL (0.3-0.8); NEUTROPHILS # (AUTO) 4.2 x10^3/uL (2.2-4.8); NEUTROPHILS % (AUTO) 66.3 % (42.0-75.0); RED BLOOD COUNT 4.39 X10^6/uL (4.7-6.0); RED CELL DISTRIBUTION WIDTH 13.9 % (11.6-16.5); WHITE BLOOD COUNT 6.4 X10^3/uL (3.6-10.0)
[2021-11-19 12:21] LABS: ALANINE AMINOTRANSFERASE 6 Units/L (12-78); ALBUMIN 3.5 g/dL (3.4-5.0); ALKALINE PHOSPHATASE 41 Units/L (46-116); ASPARTATE AMINO TRANSFERASE 12 Units/L (15-37); BLOOD UREA NITROGEN 34 mg/dL (7-18); CALCIUM 9.4 mg/dL (8.5-10.1); CARBON DIOXIDE 22.6 mmol/L (21-32); CHLORIDE 101 mmol/L (98-107); COR NA(FOR HYPERGLY) 139 mmol/L (136-145); CREATININE 1.42 mg/dL (0.70-1.30); SODIUM 137 mmol/L (136-145); TOTAL PROTEIN 7.8 g/dL (6.4-8.2); eGFR NON BLACK RACES 51 (>60)
--- NOTE | 2021-11-19 12:31 | CT ---
HISTORYNontraumatic right hip painSTUDYCT right hip without contrastTechnique: Axial noncontrast images with coronal and sagittal reformats. Dose reduction procedures were used with mA/kv adjusted for body size.COMPARISONNoneFINDINGSThe visualized portion of the sacrum appears within normal limits. The right SI joint is intact. There are some degenerative changes present in the right SI joint. The right pelvic bones appear intact. The right hip joint is intact. No joint erosions are identified. No joint effusion is present. There is mild degenerative joint space narrowing present. The proximal femur is intact. No periarticular soft tissue abnormality is identified.IMPRESSIONNo fracture identifiedMild degenerative joint space narrowing right hip jointElectronically signed by: KESHA CALLEJAS (Nov 19, 2021 12:31:01)
--- NOTE | 2021-11-19 12:37 | CT ---
HISTORYFALLING, PAIN TO LOWER BACKSTUDYLUMBAR SPINE W/O CONCOMPARISONNone.TECHNIQUEMultiple axial images of the lumbar spine were obtained from the thoracolumbar junction to the sacrum without the administration of IV contrast. Sagittal and coronal reformats were performed and reviewed. Dose reduction techniques including Automated Exposure Control (AEC) and adjustment of mA and kV were utilized.FINDINGSCortical irregularity of the right L1 transverse process which may represent a nondisplaced fracture (series 4, image 41 series 6, image 48). Remaining osseous structures appear intact. Multilevel moderate to severe disc space narrowing with associated endplate sclerosis, disc osteophyte complexes, and vacuum disc phenomenon. Multilevel bilateral mild to severe neural foraminal narrowing. Multilevel spinal canal stenosis to 8 mm. Vascular calcifications without evidence of aneurysmal dilatation. Diverticulosis without evidence of diverticulitis. Bibasilar scarring versus atelectasis of the visualized lungs.IMPRESSIONOne. Cortical irregularity of the right L1 transverse process which may represent a nondisplaced fracture. Recommend clinical correlation for point tenderness. Remaining osseous structures appear intact.Two. Other findings as above.Electronically signed by: SYED JARAMILLO (Nov 19, 2021 12:36:47)
--- NOTE | 2021-11-19 14:16 | DR.MBACK ---
HPI Time Seen Time Seen by Provider: 11/19/21 11:28 PCP Primary Care Physician: WILY MALDONADO Complaint Chief Complaint:: EMS OUT TO PT WITH BACK PAIN, PT'S FAMILY STATES HE HAS BEEN FALLING AND LAST WEEK WILY MALDONADO AND AN XRAY WAS PERFROMED (-), RESULTS AND THAT THEY ARE TRYING TO GET A PRECERT FOR A MRI, PT HAS C/O BACK PAIN AND RIGHT HIP ,BR COVID-19 Coronavirus risk:travel/contact w/high risk person: No Has patient experienced Coronavirus symptoms: No Source History Provided: Family Member Mode of Arrival Mode of Arrival: Stretcher Timing Onset of Chief Complaint: 11/12/21 PMH PMH Past Medical History: Yes Past Medical History: Dementia, Diabetes and Hypertension Past Surgical History: Yes Surgical History: Appendectomy and Ortho Surgery Family History History of Family Medical Conditions: Yes Family Medical History: Cancer Social History Does patient currently use any type of tobacco product: No Have you used tobacco products in the last 12 months: No Type of Tobacco Use: None Does any household member use tobacco: No Alcohol Use: None Do you use any recreational Drugs:: No Lives With: Family Lives Where: Home Travel Risk Coronavirus risk:travel/contact w/high risk person: No Has patient experienced Coronavirus symptoms: No Infectious screening In the last 2 months have you had wt loss of >10#?: NO Have you had fever, night sweats or hemotysis?: No Have you traveled outside the country in the last 6 months?: No Isolation: Standard PE Vital Signs Vitals: Temperature 97.6 F Pulse Rate 76 Respiratory Rate 22 Blood Pressure [Right Arm] 144/76 Blood Pressure [Left Arm] 161/72 Blood Pressure 185/95 O2 Sat by Pulse Oximetry 96 ROR Labs Reviewed Result Diagrams: 11/19/21 12:00 11/19/21 12:00 Laboratory: WBC 6.4 X10^3/uL (3.6-10.0) 11/19/21 12:00 RBC 4.39 X10^6/uL (4.7-6.0) L 11/19/21 12:00 Hgb 12.0 g/dL (13.5-18.0) L 11/19/21 12:00 Hct 34.9 % (42.0-54.0) L 11/19/21 12:00 MCV 79.5 fL (80.0-100.0) L 11/19/21 12:00 MCH 27.3 pg (27.0-34.0) 11/19/21 12:00 MCHC 34.4 g/dL (33.0-35.0) 11/19/21 12:00 RDW 13.9 % (11.6-16.5) 11/19/21 12:00 Plt Count 215 X10^3/uL (150.0-450.0) 11/19/21 12:00 MPV 6.9 fL (7.4-11.0) L 11/19/21 12:00 Neut % (Auto) 66.3 % (42.0-75.0) 11/19/21 12:00 Lymph % (Auto) 21.6 % (21.0-51.0) 11/19/21 12:00 [place] % (Auto) 8.0 % (0.0-13.0) 11/19/21 12:00 Eos % (Auto) 1.9 % (0.9-2.9) 11/19/21 12:00 Baso % (Auto) 2.2 % (0.2-1.0) H 11/19/21 12:00 Neut # (Auto) 4.2 x10^3/uL (2.2-4.8) 11/19/21 12:00 Lymph # (Auto) 1.4 X10^3/uL (1.3-2.9) 11/19/21 12:00 [place] # (Auto) 0.5 x10^3/uL (0.3-0.8) 11/19/21 12:00 Eos # (Auto) 0.1 x10^3/uL (0.0-0.2) 11/19/21 12:00 Baso # (Auto) 0.1 X10^3/uL (0.0-0.1) 11/19/21 12:00 Absolute Nucleated RBC 0.0 /100WBC 11/19/21 12:00 Sodium 137 mmol/L (136-145) 11/19/21 12:00 Corrected Sodium 139 mmol/L (136-145) 11/19/21 12:00 Potassium 4.2 mmol/L (3.5-5.1) 11/19/21 12:00 Chloride 101 mmol/L (98-107) 11/19/21 12:00 Carbon Dioxide 22.6 mmol/L (21-32) 11/19/21 12:00 BUN 34 mg/dL (7-18) H 11/19/21 12:00 Creatinine 1.42 mg/dL (0.70-1.30) H 11/19/21 12:00 Est GFR (MDRD) Af Amer > 60 (>60) 11/19/21 12:00 Est GFR (MDRD) Non-Af 51 (>60) L 11/19/21 12:00 Glucose 170 mg/dL (65-99) H 11/19/21 12:00 Calcium 9.4 mg/dL (8.5-10.1) 11/19/21 12:00 Corrected Calcium TNP 11/19/21 12:00 Total Bilirubin 0.50 mg/dL (0.2-1.0) 11/19/21 12:00 AST 12 Units/L (15-37) L 11/19/21 12:00 ALT 6 Units/L (12-78) L 11/19/21 12:00 Alkaline Phosphatase 41 Units/L (46-116) L 11/19/21 12:00 Total Protein 7.8 g/dL (6.4-8.2) 11/19/21 12:00 Albumin 3.5 g/dL (3.4-5.0) 11/19/21 12:00 Globulin 4.3 g/dL (2.5-4.5) 11/19/21 12:00 Albumin/Globulin Ratio 0.8 Ratio (1.1-2.1) L 11/19/21 12:00 Opioid Opioid Risk Tool Age (Juan Luis box if 16-45): No History of Preadolescent Sexual Abuse: No Total: 0 Total Score Risk Category: Low Risk Copyright: Isaias CHRISTINE predicting aberrant behaviors Diagnosis Discharge Problem: Closed lumbar vertebral fracture Qualifiers: Encounter type: initial encounter Lumbar vertebra fracture level: L1 Fracture morphology: other fracture Qualified Code(s): S32.018A - Other fracture of first lumbar vertebra, initial encounter for closed fracture ADDITIONAL NOTES Additional Notes Additional Notes: duplicate chart - see other chart
[2021-11-19] MEDS ORDERED: CATAPRES TAB 0.2 MG PO ONE (14:28)
[2021-11-19] MEDS ORDERED: CATAPRES TAB 0.2 MG ONE (14:40)
[2021-11-19] MEDS: SINEMET (PLAIN) 25/100 MG PO SCH ×2 (16:30→21:30)
[2021-11-19] MEDS ORDERED: GLUCOPHAGE ONE (20:20)
[2021-11-19] MEDS: CRESTOR TAB 10 MG PO SCH (21:30)
[2021-11-19] MEDS: OXYBUTYNIN CHLORIDE ER PO SCH (21:30)
[2021-11-19] MEDS: GLUCOPHAGE PO SCH (21:30)
[2021-11-19] MEDS ORDERED: MORPHINE SULFATE INJ 2 MG INJ IVP PRN (21:40)
[2021-11-19] MEDS: NS 1,000 ML IV 1,000 ML IV SCH (22:19)
[2021-11-20] MEDS: SINEMET (PLAIN) 25/100 MG PO SCH ×3 (04:48→21:16)
[2021-11-20 05:28] LABS: BASOPHILS # (AUTO) 0.1 X10^3/uL (0.0-0.1); EOSINOPHILS # (AUTO) 0.2 x10^3/uL (0.0-0.2); EOSINOPHILS % (AUTO) 3.5 % (0.9-2.9); HEMATOCRIT 33.5 % (42.0-54.0); HEMOGLOBIN 11.3 g/dL (13.5-18.0); LYMPHOCYTES # (AUTO) 1.1 X10^3/uL (1.3-2.9); MEAN CORPUSCULAR HEMOGLOBIN 26.8 pg (27.0-34.0); MEAN CORPUSCULAR HGB CONC 33.8 g/dL (33.0-35.0); MEAN CORPUSCULAR VOLUME 79.2 fL (80.0-100.0); MEAN PLATELET VOLUME 7.2 fL (7.4-11.0); MONOCYTES # (AUTO) 0.6 x10^3/uL (0.3-0.8); MONOCYTES % (AUTO) 10.4 % (0.0-13.0); NEUTROPHILS # (AUTO) 3.6 x10^3/uL (2.2-4.8); NEUTROPHILS % (AUTO) 65.1 % (42.0-75.0); RED BLOOD COUNT 4.23 X10^6/uL (4.7-6.0); RED CELL DISTRIBUTION WIDTH 13.6 % (11.6-16.5); WHITE BLOOD COUNT 5.5 X10^3/uL (3.6-10.0)
[2021-11-20 05:48] LABS: ALANINE AMINOTRANSFERASE 11 Units/L (12-78); ALBUMIN 3.4 g/dL (3.4-5.0); ALKALINE PHOSPHATASE 40 Units/L (46-116); ASPARTATE AMINO TRANSFERASE 11 Units/L (15-37); BLOOD UREA NITROGEN 27 mg/dL (7-18); CALCIUM 9.1 mg/dL (8.5-10.1); CARBON DIOXIDE 22.4 mmol/L (21-32); CHLORIDE 101 mmol/L (98-107); COR NA(FOR HYPERGLY) 137 mmol/L (136-145); CREATININE 1.15 mg/dL (0.70-1.30); SODIUM 136 mmol/L (136-145); TOTAL PROTEIN 7.8 g/dL (6.4-8.2); eGFR NON BLACK RACES > 60 (>60)
[2021-11-20] MEDS ORDERED: GLUCOPHAGE ONE ×2 (07:20→21:09)
[2021-11-20] MEDS: GLUCOPHAGE PO SCH ×2 (08:53→21:15)
[2021-11-20] MEDS: VITAMIN D3 125 mcg (5,000 UNITS) PO SCH (08:53)
[2021-11-20] MEDS: ASPIRIN EC 81 MG PO SCH (08:53)
[2021-11-20] MEDS: SEROquel TAB 25 mg PO SCH ×3 (08:53→21:16)
[2021-11-20] MEDS: LOVENOX INJ 40 MG SYR SC SCH (08:58)
[2021-11-20] MEDS ORDERED: NORCO 5/325 MG TAB PO PRN (09:24)
--- NOTE | 2021-11-20 11:32 | DR.H&P ---
H&P - History & Physical for Day of: H&P Date: 11/19/21 - Chief Complaint Chief Complaint: RIGHT HIP PAIN, LOW BACK PAIN, WEAKNESS, FREQUENT FALLS - History of Present Illness History of Present Illness: IS A 81 YEAR OLD PATIENT OF OURS. WE HAVE BEEN FOLLOWING HIM IN THE OFFICE FOR THE PAST TWO WEEKS DUE TO INCREASING WEAKNESS AND FREQUENT FALLS. PATIENT REPORTS FALLING AT HOME MULTIPLE TIMES OVER THE PAST 2-3 WEEKS. HE PRESENTED TO THE ER WITH REPORTS OF WORSENING RIGHT HIP PAIN AFTER FALLING AT HOME LAST WEEK. HE ALSO ADMITS TO LOW BACK PAIN. PAIN IS WORSE WITH MOVEMENT AND MODERATELY LIMITS ACTIVITY. PAIN IS DESCRIBED ACHING AND CONSTANT. HE RATED PAIN A 8/10 ON ARRIVAL. HE REQUIRES MODERATE ASSISTANCE FOR AMBULATION DUE TO WEAKNESS AND UNSTEADY GAIT. EXAMINATION REVEALED SCATTERED BRUISING OVER BODY. MODERATE PAIN NOTED TO PALPATION OF LUMBAR SPINE AND RIGHT HIP. HIS PMH INCLUDES: DEMENTIA, URINARY FREQUENCY, PARKINSONS, HYPERLIPIDEMIA, AND DM II. ON ARRIVAL, HIS VITALS WERE 97.6-76-22-96%-185/95. LABS WERE OBTA INED. WBC 6.4, RBC 4.39, HGB 12.0, HCT 79.5, SODIUM 137, POTASSIUM 4.2, CHLORIDE 101, BUN 34, CREATININE 1.42, GLUCOSE 170, AST 12, ALT 6, ALK PHOS 41, TOTAL PROTEIN 7.8, ALBUMIN 3.5. LOWER EXTREMITY CT WITHOUT CONTRAST WAS OBTAINED AND REVEALED: No fracture identified. Mild degenerative joint space narrowing right hip joint. LUMBAR SPINE CT WAS OBTAINED AND REVEALED: Cortical irregularity of the right L1 transverse process which may represent a nondisplaced fracture (series 4, image 41 series 6, image 48). Remaining osseous structures appear intact. Multilevel moderate to severe disc space narrowing with associated endplate sclerosis, discosteophyte complexes, and vacuum disc phenomenon. Multilevel bilateral mild to severe neural foraminal narrowing. Multilevel spinal canal stenosis to 8 mm. Vascular calcifications without evidence of aneurysmal dilatation. Diverticulosis without evidence of diverticulitis. Bibasilar scarring versus atelectasis of the visualized lungs. IN THE ER, HE WAS GIVEN CATAPRES 0.2MG PO X 1 FOR HTN. HE WAS ADMITTED TO THE HOSPITAL OBSERVATION STATUS FOR FURTHER EVALUATION AND TREATMENT OF INTRACTABLE PAIN, L1 NONDISPLACED FRACTURE, GENERALIZED WEAKNESS, AND FREQUENT FALLS. HE WAS STARTED ON NORMAL SALINE AT 75 ML/HR, NORCO 5/325MG PO Q4H PRN, MORPHINE SULFATE 2MG IV Q4H PRN, LOVENOX 40MG SC DAILY, AMLODIPINE 5MG DAILY, AND HIS HOME MEDICATIONS WERE RESUMED. WE WILL HAVE PHYSICAL AND OCCUPTIONAL THERAPIES EVALUATE AND WORK WITH PATIENT. OTHERWISE, WE WILL FOLLOW UP WITH AM LABS AND CONTINUE TO MONITOR. - Past Medical History Past Medical History: Hypertension, Diabetes, Dementia Additional Medical History: URINARY FREQUENCY - Past Surgical History Surgical History: Appendectomy, Joint Replacement - Family History Family Medical History: Cancer - Social History Does patient currently use any type of tobacco product: No Have you used tobacco products in the last 12 months: No Type of Tobacco Use: None Does any household member use tobacco: No Alcohol Use: None Drug Use: None - Medications Home Medications: No Known Drug Allergies Allergy (Verified 06/20/17 17:57) CONTINUE taking the following medications carbidopa-levodopa 25 - 100 tab PO Q6H 11/19/21 [History] cholecalciferol (vitamin D3) [Vitamin D3] 125 mcg PO DAILY 11/19/21 [History] oxybutynin chloride 10 mg PO HS 11/19/21 [History] quetiapine [Seroquel] 50 mg PO HS 11/19/21 [History] rosuvastatin 10 mg PO HS 11/19/21 [History] - Review of Systems Constitutional: Weakness Eyes: No Symptoms Reported ENT: No Symptoms Reported Respiratory: No Symptoms Reported Cardiovascular: No Symptoms Reported Gastrointestinal: No Symptoms Reported Genitourinary: See HPI, Frequency Musculoskeletal: See HPI, Back Pain, Other (RIGHT HIP PAIN) Skin: Bruising Neurological: Weakness - Physical Exam Vital Signs: Temperature 97.8 F Pulse Rate [Bilateral Radial] 81 Pulse Rate 75 Respiratory Rate 22 Blood Pressure [Right Arm] 144/76 Blood Pressure [Left Arm] 189/97 Blood Pressure 200/96 O2 Sat by Pulse Oximetry 98 Oriented: Person, Place Eyes: Normal Ear: Normal Nose: Normal Throat: Normal Respiratory: Diminished Throughout Cardiovascular: Normal : Normal Auscultation: Bowel Sounds: Normal Palpation: Normal Tenderness: Normal Skin: Bruising Musculoskeletal: Right, Hip, Back:Lumbar, Tender Psychiatric: Normal Mood Description: Calm Affect: Normal Speech Pattern: Clear, Appropriate - Assessment/Plan (1) Closed lumbar vertebral fracture Qualifiers: Encounter type: initial encounter Lumbar vertebra fracture level: L1 Fracture morphology: other fracture Qualified Code(s): S32.018A - Other fracture of first lumbar vertebra, initial encounter for closed fracture Status: Acute Plan: ADMIT, NORMAL SALINE AT 75 ML/HR, NORCO 5/325MG PO Q4H PRN, MORPHINE SULFATE 2MG IV Q4H PRN, LOVENOX 40MG SC DAILY, AMLODIPINE 5MG DAILY, AND HIS HOME MEDICATIONS WERE RESUMED. 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
[2021-11-20] MEDS: NS 1,000 ML IV 1,000 ML IV SCH ×2 (13:17→19:53)
[2021-11-20] MEDS: CRESTOR TAB 10 MG PO SCH (21:16)
[2021-11-20] MEDS: OXYBUTYNIN CHLORIDE ER PO SCH (21:22)
[2021-11-21] MEDS: NS 1,000 ML IV 1,000 ML IV SCH ×4 (02:57→22:09)
[2021-11-21] MEDS: SINEMET (PLAIN) 25/100 MG PO SCH ×4 (03:06→21:21)
[2021-11-21 06:07] LABS: BASOPHILS # (AUTO) 0.1 X10^3/uL (0.0-0.1); BASOPHILS % (AUTO) 0.9 % (0.2-1.0); EOSINOPHILS # (AUTO) 0.2 x10^3/uL (0.0-0.2); EOSINOPHILS % (AUTO) 4.1 % (0.9-2.9); HEMATOCRIT 34.5 % (42.0-54.0); HEMOGLOBIN 11.9 g/dL (13.5-18.0); LYMPHOCYTES # (AUTO) 1.2 X10^3/uL (1.3-2.9); LYMPHOCYTES % (AUTO) 20.4 % (21.0-51.0); MEAN CORPUSCULAR HEMOGLOBIN 27.3 pg (27.0-34.0); MEAN CORPUSCULAR HGB CONC 34.5 g/dL (33.0-35.0); MEAN CORPUSCULAR VOLUME 79.1 fL (80.0-100.0); MEAN PLATELET VOLUME 6.8 fL (7.4-11.0); MONOCYTES # (AUTO) 0.6 x10^3/uL (0.3-0.8); MONOCYTES % (AUTO) 11.1 % (0.0-13.0); NEUTROPHILS # (AUTO) 3.6 x10^3/uL (2.2-4.8); NEUTROPHILS % (AUTO) 63.5 % (42.0-75.0); RED BLOOD COUNT 4.36 X10^6/uL (4.7-6.0); RED CELL DISTRIBUTION WIDTH 13.5 % (11.6-16.5); WHITE BLOOD COUNT 5.7 X10^3/uL (3.6-10.0)
[2021-11-21 06:15] LABS: ALANINE AMINOTRANSFERASE < 6 Units/L (12-78); ALBUMIN 3.7 g/dL (3.4-5.0); ALKALINE PHOSPHATASE 41 Units/L (46-116); ASPARTATE AMINO TRANSFERASE 14 Units/L (15-37); BLOOD UREA NITROGEN 18 mg/dL (7-18); CALCIUM 9.1 mg/dL (8.5-10.1); CARBON DIOXIDE 25.8 mmol/L (21-32); CHLORIDE 101 mmol/L (98-107); COR NA(FOR HYPERGLY) 138 mmol/L (136-145); CREATININE 1.07 mg/dL (0.70-1.30); SODIUM 137 mmol/L (136-145); TOTAL PROTEIN 8.2 g/dL (6.4-8.2); eGFR NON BLACK RACES > 60 (>60)
[2021-11-21] MEDS ORDERED: GLUCOPHAGE ONE ×2 (08:00→20:46)
[2021-11-21] MEDS ORDERED: TYLENOL 325 MG TAB PO PRN (08:32)
[2021-11-21] MEDS: ASPIRIN EC 81 MG PO SCH (08:37)
[2021-11-21] MEDS: LOVENOX INJ 40 MG SYR SC SCH (08:37)
[2021-11-21] MEDS: GLUCOPHAGE PO SCH ×2 (08:37→21:21)
[2021-11-21] MEDS ORDERED: TYLENOL 325 MG TAB PO ONE (08:37)
[2021-11-21] MEDS: VITAMIN D3 125 mcg (5,000 UNITS) PO SCH (08:38)
[2021-11-21] MEDS ORDERED: VISTARIL PO PRN (11:53)
[2021-11-21] MEDS: SEROquel TAB 25 mg PO SCH (21:19)
[2021-11-21] MEDS: OXYBUTYNIN CHLORIDE ER PO SCH (21:19)
[2021-11-21] MEDS: CRESTOR TAB 10 MG PO SCH (21:21)
[2021-11-22] MEDS: SINEMET (PLAIN) 25/100 MG PO SCH ×4 (03:20→21:30)
[2021-11-22 05:23] LABS: BASOPHILS % (AUTO) 0.3 % (0.2-1.0); EOSINOPHILS # (AUTO) 0.2 x10^3/uL (0.0-0.2); HEMATOCRIT 34.1 % (42.0-54.0); HEMOGLOBIN 11.8 g/dL (13.5-18.0); LYMPHOCYTES # (AUTO) 1.1 X10^3/uL (1.3-2.9); LYMPHOCYTES % (AUTO) 21.1 % (21.0-51.0); MEAN CORPUSCULAR HEMOGLOBIN 27.4 pg (27.0-34.0); MEAN CORPUSCULAR HGB CONC 34.6 g/dL (33.0-35.0); MEAN PLATELET VOLUME 7.1 fL (7.4-11.0); MONOCYTES # (AUTO) 0.6 x10^3/uL (0.3-0.8); MONOCYTES % (AUTO) 11.6 % (0.0-13.0); NEUTROPHILS # (AUTO) 3.4 x10^3/uL (2.2-4.8); RED BLOOD COUNT 4.31 X10^6/uL (4.7-6.0); RED CELL DISTRIBUTION WIDTH 13.7 % (11.6-16.5); WHITE BLOOD COUNT 5.4 X10^3/uL (3.6-10.0)
[2021-11-22] MEDS: NS 1,000 ML IV 1,000 ML IV SCH ×3 (05:29→20:16)
[2021-11-22 05:32] LABS: ALANINE AMINOTRANSFERASE 6 Units/L (12-78); ALBUMIN 3.5 g/dL (3.4-5.0); ALKALINE PHOSPHATASE 41 Units/L (46-116); ASPARTATE AMINO TRANSFERASE 14 Units/L (15-37); BLOOD UREA NITROGEN 16 mg/dL (7-18); CALCIUM 8.8 mg/dL (8.5-10.1); CARBON DIOXIDE 25.8 mmol/L (21-32); CHLORIDE 101 mmol/L (98-107); COR NA(FOR HYPERGLY) 137 mmol/L (136-145); CREATININE 0.95 mg/dL (0.70-1.30); SODIUM 136 mmol/L (136-145); TOTAL PROTEIN 7.8 g/dL (6.4-8.2); eGFR NON BLACK RACES > 60 (>60)
[2021-11-22] MEDS ORDERED: GLUCOPHAGE ONE ×2 (10:04→20:43)
[2021-11-22] MEDS: ASPIRIN EC 81 MG PO SCH (10:10)
[2021-11-22] MEDS: GLUCOPHAGE PO SCH ×2 (10:10→21:29)
[2021-11-22] MEDS: LOVENOX INJ 40 MG SYR SC SCH (10:11)
[2021-11-22] MEDS: VITAMIN D3 125 mcg (5,000 UNITS) PO SCH (10:11)
[2021-11-22] MEDS: SEROquel TAB 25 mg PO SCH (21:30)
[2021-11-22] MEDS: OXYBUTYNIN CHLORIDE ER PO SCH (21:30)
[2021-11-22] MEDS: CRESTOR TAB 10 MG PO SCH (21:30)
[2021-11-23] MEDS: SINEMET (PLAIN) 25/100 MG PO SCH ×4 (02:52→21:23)
[2021-11-23] MEDS: NS 1,000 ML IV 1,000 ML IV SCH ×3 (02:53→15:55)
[2021-11-23] MEDS ORDERED: CATAPRES TAB 0.1 MG PO ONE (04:13)
[2021-11-23 05:06] LABS: BASOPHILS % (AUTO) 0.8 % (0.2-1.0); EOSINOPHILS # (AUTO) 0.3 x10^3/uL (0.0-0.2); EOSINOPHILS % (AUTO) 4.9 % (0.9-2.9); HEMATOCRIT 33.2 % (42.0-54.0); HEMOGLOBIN 11.4 g/dL (13.5-18.0); LYMPHOCYTES # (AUTO) 1.2 X10^3/uL (1.3-2.9); LYMPHOCYTES % (AUTO) 20.1 % (21.0-51.0); MEAN CORPUSCULAR HEMOGLOBIN 27.3 pg (27.0-34.0); MEAN CORPUSCULAR HGB CONC 34.4 g/dL (33.0-35.0); MEAN CORPUSCULAR VOLUME 79.2 fL (80.0-100.0); MEAN PLATELET VOLUME 6.8 fL (7.4-11.0); MONOCYTES # (AUTO) 0.7 x10^3/uL (0.3-0.8); MONOCYTES % (AUTO) 11.8 % (0.0-13.0); NEUTROPHILS # (AUTO) 3.6 x10^3/uL (2.2-4.8); NEUTROPHILS % (AUTO) 62.4 % (42.0-75.0); RED BLOOD COUNT 4.19 X10^6/uL (4.7-6.0); RED CELL DISTRIBUTION WIDTH 13.7 % (11.6-16.5); WHITE BLOOD COUNT 5.8 X10^3/uL (3.6-10.0)
[2021-11-23 05:26] LABS: ALANINE AMINOTRANSFERASE 6 Units/L (12-78); ALBUMIN 3.2 g/dL (3.4-5.0); ALKALINE PHOSPHATASE 38 Units/L (46-116); ASPARTATE AMINO TRANSFERASE 14 Units/L (15-37); BLOOD UREA NITROGEN 15 mg/dL (7-18); CALCIUM 8.3 mg/dL (8.5-10.1); CHLORIDE 100 mmol/L (98-107); COR CA(FOR HYPOALB) 8.9 mg/dL (8.5-10.1); COR NA(FOR HYPERGLY) 135 mmol/L (136-145); CREATININE 1.08 mg/dL (0.70-1.30); SODIUM 134 mmol/L (136-145); TOTAL PROTEIN 7.2 g/dL (6.4-8.2); eGFR NON BLACK RACES > 60 (>60)
--- NOTE | 2021-11-23 08:24 | PCM.PROG ---
Progress Note - Progress Note for Day of Date of Exam: 11/21/21 - Subjective Subjective: WAS ADMITTED FOR TREATMENT OF CLOSED L1 FX, ACUTE RIGHT HIP PAIN, FREQUENT FALLS, AND GENERALIZED WEAKNESS. TODAY, HE IS ALERT AND ORIENTED, LYING IN BED ON MORNING ROUNDS. HE CONTINUES WITH RIGHT HIP AND LOW BACK PAIN, BUT REPORTS SLIGHT IMPROVEMENT SINCE YESTERDAY. STAFF REPORTS THAT HE CONTINUES TO HAVE AN UNSTEADY GAIT AND REQUIRES ASSISTANCE FOR AMBULATION. ON EXAMINATION, HEART IS REGULAR IN RATE AND RHYTHM. BILATERAL LUNGS NOTED WITH DIMINISHED LUNG SOUNDS THROUGHOUT. ABDOMEN IS ROUND, SOFT, AND NON-TENDER WITH NORMAL BOWEL SOUNDS NOTED IN ALL QUADRNATS. SCATTERED BRUISING NOTED. TRACE EDEMA NOTED TO LOWER EXTREMITIES. HIS VITALS THIS MORNING ARE: 98.3-96-22-95%-180/92. LABS WERE OBTAINED. WBC 5.7, RBC 4.36, HGB 11.9, HCT 34.5, SODIUM 137, POTASSIUM 4.0, BUN 18, CREATININE 1.07, GLUCOSE 152, CALCIUM 9.1, AST 14, ALT <6, ALK PHOS 41, ALBUMIN 3.7. PHYSICAL THERAPY CONTINUES TO WORK WITH PATIENT. HE IS CURRENTLY RECEIVING NORMAL SALINE AT 75 ML/HR, NORCO 5/325MG PO Q4H PRN, MORPHINE SULFATE 2MG IV Q4H PRN, LOVENOX 40MG SC DAILY, AMLODIPINE 5MG DAILY, AND HIS HOME MEDICATIONS WERE RESUMED. WE WILL CONTINUE WITH CURRENT PLAN OF CARE TODAY. PATIENT AND FAMILY ARE AGREEABLE TO PLACEMENT FOR REHABILITATION. WE WILL SPEAK WITH CASE MANAGEMENT AND ARRANGE PLACEMENT. OTHERWISE, WE PLAN TO FOLLOW-UP WITH AM LABS AND CONTINUE TO MONITOR. TIME SPENT ON CLINICAL ASSESSMENT, REVIEWING LABS AND IMAGING, DECISION MAKING, AND DOCUMENTATION GREATER THAN 45 MINUTES. - Past Medical Family Social History Past Med/Fam/Surg Hx: No changes since H&P Allergies: Allergies No Known Drug Allergies Allergy (Verified 06/20/17 17:57) - Review of Systems ROS: No change since H&P - Vital Signs and I&O's Vital Signs: Temperature 98.1 F Pulse Rate [Left Brachial] 83 Pulse Rate [Right Brachial] 81 Pulse Rate [Bilateral Radial] 106 Pulse Rate 75 Respiratory Rate 20 Blood Pressure [Right Arm] 167/97 Blood Pressure [Left Arm] 162/89 Blood Pressure 200/96 O2 Sat by Pulse Oximetry 94 Intake and Output: Intake & Output 11/20/21 11/21/21 11/22/21 11/23/21 11:59 11:59 11:59 11:59 Intake Total 1430 / 1430 1700 / 1700 1457 / 1457 1037 / 1037 Output Total 100 / 100 200 / 200 100 / 100 Balance 1430 / 1430 1600 / 1600 1257 / 1257 937 / 937 - Physical Exam Oriented: Person, Place Eyes: Normal Ear: Normal Nose: Normal Throat: Normal Cardiovascular: Normal : Normal Auscultation: Bowel Sounds: Normal Palpation: Normal Tenderness: Normal Skin: Bruising Musculoskeletal: Right, Hip, Back:Lumbar, Tender Psychiatric: Normal Mood Description: Calm Affect: Normal Speech Pattern: Clear - Laboratory and Diagnostics Result Diagrams: 11/23/21 04:40 11/23/21 04:40 Labs: Laboratory WBC 5.8 X10^3/uL (3.6-10.0) 11/23/21 04:40 RBC 4.19 X10^6/uL (4.7-6.0) L 11/23/21 04:40 Hgb 11.4 g/dL (13.5-18.0) L 11/23/21 04:40 Hct 33.2 % (42.0-54.0) L 11/23/21 04:40 MCV 79.2 fL (80.0-100.0) L 11/23/21 04:40 MCH 27.3 pg (27.0-34.0) 11/23/21 04:40 MCHC 34.4 g/dL (33.0-35.0) 11/23/21 04:40 RDW 13.7 % (11.6-16.5) 11/23/21 04:40 Plt Count 208 X10^3/uL (150.0-450.0) 11/23/21 04:40 MPV 6.8 fL (7.4-11.0) L 11/23/21 04:40 Neut % (Auto) 62.4 % (42.0-75.0) 11/23/21 04:40 Lymph % (Auto) 20.1 % (21.0-51.0) L 11/23/21 04:40 [place] % (Auto) 11.8 % (0.0-13.0) 11/23/21 04:40 Eos % (Auto) 4.9 % (0.9-2.9) H 11/23/21 04:40 Baso % (Auto) 0.8 % (0.2-1.0) 11/23/21 04:40 Neut # (Auto) 3.6 x10^3/uL (2.2-4.8) 11/23/21 04:40 Lymph # (Auto) 1.2 X10^3/uL (1.3-2.9) L 11/23/21 04:40 [place] # (Auto) 0.7 x10^3/uL (0.3-0.8) 11/23/21 04:40 Eos # (Auto) 0.3 x10^3/uL (0.0-0.2) H 11/23/21 04:40 Baso # (Auto) 0.0 X10^3/uL (0.0-0.1) 11/23/21 04:40 Absolute Nucleated RBC 0.1 /100WBC 11/23/21 04:40 Sodium 134 mmol/L (136-145) L 11/23/21 04:40 Corrected Sodium 135 mmol/L (136-145) L 11/23/21 04:40 Potassium 3.7 mmol/L (3.5-5.1) 11/23/21 04:40 Chloride 100 mmol/L (98-107) 11/23/21 04:40 Carbon Dioxide 23.0 mmol/L (21-32) 11/23/21 04:40 BUN 15 mg/dL (7-18) 11/23/21 04:40 Creatinine 1.08 mg/dL (0.70-1.30) 11/23/21 04:40 Est GFR (MDRD) Af Amer > 60 (>60) 11/23/21 04:40 Est GFR (MDRD) Non-Af > 60 (>60) 11/23/21 04:40 Glucose 131 mg/dL (65-99) H 11/23/21 04:40 POC Glucose (mg/dL) 128 mg/dL (65-99) H 11/23/21 05:29 Calcium 8.3 mg/dL (8.5-10.1) L 11/23/21 04:40 Corrected Calcium 8.9 mg/dL (8.5-10.1) 11/23/21 04:40 Total Bilirubin 0.40 mg/dL (0.2-1.0) 11/23/21 04:40 AST 14 Units/L (15-37) L 11/23/21 04:40 ALT 6 Units/L (12-78) L 11/23/21 04:40 Alkaline Phosphatase 38 Units/L (46-116) L 11/23/21 04:40 Total Protein 7.2 g/dL (6.4-8.2) 11/23/21 04:40 Albumin 3.2 g/dL (3.4-5.0) L 11/23/21 04:40 Globulin 4.0 g/dL (2.5-4.5) 11/23/21 04:40 Albumin/Globulin Ratio 0.8 Ratio (1.1-2.1) L 11/23/21 04:40 - Plan (1) Closed lumbar vertebral fracture Status: Acute Qualifiers: Encounter type: initial encounter Lumbar vertebra fracture level: L1 Fracture morphology: other fracture Qualified Code(s): S32.018A - Other fracture of first lumbar vertebra, initial encounter for closed fracture Plan: NORMAL SALINE AT 75 ML/HR, NORCO 5/325MG PO Q4H PRN, MORPHINE SULFATE 2MG IV Q4H PRN, LOVENOX 40MG SC DAILY, AMLODIPINE 5MG DAILY, AND HIS HOME MEDICATIONS WERE RESUMED. PT/OT (2) Acute right hip pain Status: Acute (3) Frequent falls Status: Acute (4) Generalized weakness Status: Acute (5) Hypertension Status: Chronic Qualifiers: Hypertension type: primary hypertension Qualified Code(s): I10 - Essential (primary) hypertension (6) DM type 2 (diabetes mellitus, type 2) Status: Chronic Qualifiers: Diabetes mellitus senior living insulin use: with senior living use Diabetes mellitus complication status: with hyperglycemia Qualified Code(s): E11.65 - Type 2 diabetes mellitus with hyperglycemia; Z79.4 - longterm (current) use of insulin (7) History of Parkinson's disease Status: Chronic (8) Hyperlipemia Status: Chronic Qualifiers: Hyperlipidemia type: mixed hyperlipidemia
--- NOTE | 2021-11-23 08:27 | PCM.PROG ---
Progress Note - Progress Note for Day of Date of Exam: 11/22/21 - Subjective Subjective: WAS ADMITTED OBSERVATION STATUS FOR TREATMENT OF CLOSED L1 FX, ACUTE RIGHT HIP PAIN, FREQUENT FALLS, AND GENERALIZED WEAKNESS. TODAY, HE IS ALERT AND ORIENTED, LYING IN BED ON MORNING ROUNDS. HE CONTINUES WITH RIGHT HIP AND LOW BACK PAIN. STAFF REPORTS THAT HE CONTINUES TO HAVE AN UNSTEADY GAIT AND REQUIRES ASSISTANCE FOR AMBULATION. ON EXAMINATION, HEART IS REGULAR IN RATE AND RHYTHM. BILATERAL LUNGS NOTED WITH DIMINISHED LUNG SOUNDS THROUGHOUT. ABDOMEN IS ROUND, SOFT, AND NON-TENDER WITH NORMAL BOWEL SOUNDS NOTED IN ALL QUADRNATS. SCATTERED BRUISING NOTED. HE CONTINUES WITH TENDERNESS TO THE LUMBAR SPINE AND RIGHT HIP ON EXAMINATION. TRACE EDEMA NOTED TO LOWER EXTREMITIES. HIS VITALS THIS MORNING ARE: 97.6-89-20-97%-186/98. LABS WERE OBTAINED. WBC 5.4, RBC 4.31, HGB 11.8, HCT 34.1, SODIUM 136, POTASSIUM 3.9, CHLORIDE 101, BUN 16, CREATININE 0.95, GLUCOSE 137, AST 14, ALT 6, ALK PHOS 41. PHYSICAL THERAPY CONTINUES TO WORK WITH PATIENT. HE IS CURRENTLY RECEIVING NORMAL SALINE AT 75 ML/HR, NORCO 5/325MG PO Q4H PRN, MORPHINE SULFATE 2MG IV Q4H PRN, LOVENOX 40MG SC DAILY, AMLODIPINE 5MG DAILY, AND HIS HOME MEDICATIONS WERE RESUMED. WE WILL CONTINUE WITH CURRENT PLAN OF CARE TODAY. PATIENT AND FAMILY ARE AGREEABLE TO PLACEMENT FOR REHABILITATION. WE WILL SPEAK WITH CASE MANAGEMENT AND ARRANGE PLACEMENT. OTHERWISE, WE PLAN TO FOLLOW-UP WITH AM LABS AND CONTINUE TO MONITOR. TIME SPENT ON CLINICAL ASSESSMENT, REVIEWING LABS AND IMAGING, DECISION MAKING, AND DOCUMENTATION GREATER THAN 45 MINUTES. - Past Medical Family Social History Past Med/Fam/Surg Hx: No changes since H&P Allergies: Allergies No Known Drug Allergies Allergy (Verified 06/20/17 17:57) - Review of Systems ROS: No change since H&P - Vital Signs and I&O's Vital Signs: Temperature 98.1 F Pulse Rate [Left Brachial] 83 Pulse Rate [Right Brachial] 81 Pulse Rate [Bilateral Radial] 106 Pulse Rate 75 Respiratory Rate 20 Blood Pressure [Right Arm] 167/97 Blood Pressure [Left Arm] 162/89 Blood Pressure 200/96 O2 Sat by Pulse Oximetry 94 Intake and Output: Intake & Output 11/20/21 11/21/21 11/22/21 11/23/21 11:59 11:59 11:59 11:59 Intake Total 1430 / 1430 1700 / 1700 1457 / 1457 1037 / 1037 Output Total 100 / 100 200 / 200 100 / 100 Balance 1430 / 1430 1600 / 1600 1257 / 1257 937 / 937 - Physical Exam Oriented: Person, Place Eyes: Normal Ear: Normal Nose: Normal Throat: Normal Respiratory: Generalized, Diminished Cardiovascular: Normal : Normal Auscultation: Bowel Sounds: Normal Palpation: Normal Tenderness: Normal Skin: Bruising Musculoskeletal: Right, Hip, Back:Lumbar, Tender Psychiatric: Normal Mood Description: Calm Affect: Normal Speech Pattern: Clear - Laboratory and Diagnostics Result Diagrams: 11/23/21 04:40 11/23/21 04:40 Labs: Laboratory WBC 5.8 X10^3/uL (3.6-10.0) 11/23/21 04:40 RBC 4.19 X10^6/uL (4.7-6.0) L 11/23/21 04:40 Hgb 11.4 g/dL (13.5-18.0) L 11/23/21 04:40 Hct 33.2 % (42.0-54.0) L 11/23/21 04:40 MCV 79.2 fL (80.0-100.0) L 11/23/21 04:40 MCH 27.3 pg (27.0-34.0) 11/23/21 04:40 MCHC 34.4 g/dL (33.0-35.0) 11/23/21 04:40 RDW 13.7 % (11.6-16.5) 11/23/21 04:40 Plt Count 208 X10^3/uL (150.0-450.0) 11/23/21 04:40 MPV 6.8 fL (7.4-11.0) L 11/23/21 04:40 Neut % (Auto) 62.4 % (42.0-75.0) 11/23/21 04:40 Lymph % (Auto) 20.1 % (21.0-51.0) L 11/23/21 04:40 [place] % (Auto) 11.8 % (0.0-13.0) 11/23/21 04:40 Eos % (Auto) 4.9 % (0.9-2.9) H 11/23/21 04:40 Baso % (Auto) 0.8 % (0.2-1.0) 11/23/21 04:40 Neut # (Auto) 3.6 x10^3/uL (2.2-4.8) 11/23/21 04:40 Lymph # (Auto) 1.2 X10^3/uL (1.3-2.9) L 11/23/21 04:40 [place] # (Auto) 0.7 x10^3/uL (0.3-0.8) 11/23/21 04:40 Eos # (Auto) 0.3 x10^3/uL (0.0-0.2) H 11/23/21 04:40 Baso # (Auto) 0.0 X10^3/uL (0.0-0.1) 11/23/21 04:40 Absolute Nucleated RBC 0.1 /100WBC 11/23/21 04:40 Sodium 134 mmol/L (136-145) L 11/23/21 04:40 Corrected Sodium 135 mmol/L (136-145) L 11/23/21 04:40 Potassium 3.7 mmol/L (3.5-5.1) 11/23/21 04:40 Chloride 100 mmol/L (98-107) 11/23/21 04:40 Carbon Dioxide 23.0 mmol/L (21-32) 11/23/21 04:40 BUN 15 mg/dL (7-18) 11/23/21 04:40 Creatinine 1.08 mg/dL (0.70-1.30) 11/23/21 04:40 Est GFR (MDRD) Af Amer > 60 (>60) 11/23/21 04:40 Est GFR (MDRD) Non-Af > 60 (>60) 11/23/21 04:40 Glucose 131 mg/dL (65-99) H 11/23/21 04:40 POC Glucose (mg/dL) 128 mg/dL (65-99) H 11/23/21 05:29 Calcium 8.3 mg/dL (8.5-10.1) L 11/23/21 04:40 Corrected Calcium 8.9 mg/dL (8.5-10.1) 11/23/21 04:40 Total Bilirubin 0.40 mg/dL (0.2-1.0) 11/23/21 04:40 AST 14 Units/L (15-37) L 11/23/21 04:40 ALT 6 Units/L (12-78) L 11/23/21 04:40 Alkaline Phosphatase 38 Units/L (46-116) L 11/23/21 04:40 Total Protein 7.2 g/dL (6.4-8.2) 11/23/21 04:40 Albumin 3.2 g/dL (3.4-5.0) L 11/23/21 04:40 Globulin 4.0 g/dL (2.5-4.5) 11/23/21 04:40 Albumin/Globulin Ratio 0.8 Ratio (1.1-2.1) L 11/23/21 04:40 - Plan (1) Closed lumbar vertebral fracture Status: Acute Qualifiers: Encounter type: initial encounter Lumbar vertebra fracture level: L1 Fracture morphology: other fracture Qualified Code(s): S32.018A - Other fracture of first lumbar vertebra, initial encounter for closed fracture Plan: NORMAL SALINE AT 75 ML/HR, NORCO 5/325MG PO Q4H PRN, MORPHINE SULFATE 2MG IV Q4H PRN, LOVENOX 40MG SC DAILY, AMLODIPINE 5MG DAILY, AND HIS HOME MEDICATIONS WERE RESUMED. 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
[2021-11-23] MEDS: VITAMIN D3 125 mcg (5,000 UNITS) PO SCH (09:13)
[2021-11-23] MEDS: ASPIRIN EC 81 MG PO SCH (09:13)
[2021-11-23] MEDS ORDERED: GLUCOPHAGE ONE ×2 (09:13→19:55)
[2021-11-23] MEDS: GLUCOPHAGE PO SCH ×2 (09:14→21:22)
[2021-11-23] MEDS: LOVENOX INJ 40 MG SYR SC SCH (09:14)
--- NOTE | 2021-11-23 09:51 | PCM.PROG ---
Progress Note - Progress Note for Day of Date of Exam: 11/23/21 - Subjective Subjective: WAS ADMITTED OBSERVATION STATUS FOR TREATMENT OF CLOSED L1 FX, ACUTE RIGHT HIP PAIN, FREQUENT FALLS, AND GENERALIZED WEAKNESS. TODAY, HE IS ALERT AND ORIENTED, LYING IN BED ON MORNING ROUNDS. HE CONTINUES WITH RIGHT HIP AND LOW BACK PAIN. STAFF REPORTS THAT HE CONTINUES TO HAVE AN UNSTEADY GAIT AND REQUIRES ASSISTANCE FOR AMBULATION. ON EXAMINATION, HEART IS REGULAR IN RATE AND RHYTHM. BILATERAL LUNGS NOTED WITH DIMINISHED LUNG SOUNDS THROUGHOUT. ABDOMEN IS ROUND, SOFT, AND NON-TENDER WITH NORMAL BOWEL SOUNDS NOTED IN ALL QUADRNATS. SCATTERED BRUISING NOTED. HE CONTINUES WITH TENDERNESS TO THE LUMBAR SPINE AND RIGHT HIP ON EXAMINATION. TRACE EDEMA NOTED TO LOWER EXTREMITIES. HIS VITALS THIS MORNING ARE: 98.1-83-20-94%-162/89. LABS WERE OBTAINED. WBC 4.19, HGB 11.4, HCT 33.2, SODIUM 134, GLUCOSE 131, CALCIUM 8.3, AST 14, ALT 6, ALK PHOS 38, TOTAL PROTEIN 3.2. PHYSICAL THERAPY CONTINUES TO WORK WITH PATIENT. HE IS CURRENTLY RECEIVING NORMAL SALINE AT 75 ML/HR, NORCO 5/325MG PO Q4H PRN, MORPHINE SULFATE 2MG IV Q4H PRN, LOVENOX 40MG SC DAILY, AMLODIPINE 5MG DAILY, AND HIS HOME MEDICATIONS WERE RESUMED. WE WILL CONTINUE WITH CURRENT PLAN OF CARE TODAY. PATIENT AND FAMILY ARE AGREEABLE TO PLACEMENT FOR REHABILITATION. PRECERT FOR [facility] IS PENDING. OTHERWISE, WE PLAN TO FOLLOW-UP WITH AM LABS AND CONTINUE TO MONITOR. TIME SPENT ON CLINICAL ASS ESSMENT, REVIEWING LABS AND IMAGING, DECISION MAKING, AND DOCUMENTATION GREATER THAN 45 MINUTES. - Past Medical Family Social History Past Med/Fam/Surg Hx: No changes since H&P Allergies: Allergies No Known Drug Allergies Allergy (Verified 06/20/17 17:57) - Review of Systems ROS: No change since H&P - Vital Signs and I&O's Vital Signs: Temperature 98.1 F Pulse Rate [Left Brachial] 83 Pulse Rate [Right Brachial] 81 Pulse Rate [Bilateral Radial] 106 Pulse Rate 75 Respiratory Rate 20 Blood Pressure [Right Arm] 167/97 Blood Pressure [Left Arm] 162/89 Blood Pressure 200/96 O2 Sat by Pulse Oximetry 94 Intake and Output: Intake & Output 11/20/21 11/21/21 11/22/21 11/23/21 11:59 11:59 11:59 11:59 Intake Total 1430 / 1430 1700 / 1700 1457 / 1457 1037 / 1037 Output Total 100 / 100 200 / 200 100 / 100 Balance 1430 / 1430 1600 / 1600 1257 / 1257 937 / 937 - Physical Exam Oriented: Person, Place Eyes: Normal Ear: Normal Nose: Normal Throat: Normal Respiratory: Generalized, Diminished Cardiovascular: Normal : Normal Auscultation: Bowel Sounds: Normal Tenderness: Normal Skin: Bruising Musculoskeletal: Right, Hip, Back:Lumbar, Tender Psychiatric: Normal Mood Description: Calm Affect: Normal Speech Pattern: Clear - Laboratory and Diagnostics Result Diagrams: 11/23/21 04:40 11/23/21 04:40 Labs: Laboratory WBC 5.8 X10^3/uL (3.6-10.0) 11/23/21 04:40 RBC 4.19 X10^6/uL (4.7-6.0) L 11/23/21 04:40 Hgb 11.4 g/dL (13.5-18.0) L 11/23/21 04:40 Hct 33.2 % (42.0-54.0) L 11/23/21 04:40 MCV 79.2 fL (80.0-100.0) L 11/23/21 04:40 MCH 27.3 pg (27.0-34.0) 11/23/21 04:40 MCHC 34.4 g/dL (33.0-35.0) 11/23/21 04:40 RDW 13.7 % (11.6-16.5) 11/23/21 04:40 Plt Count 208 X10^3/uL (150.0-450.0) 11/23/21 04:40 MPV 6.8 fL (7.4-11.0) L 11/23/21 04:40 Neut % (Auto) 62.4 % (42.0-75.0) 11/23/21 04:40 Lymph % (Auto) 20.1 % (21.0-51.0) L 11/23/21 04:40 Millard % (Auto) 11.8 % (0.0-13.0) 11/23/21 04:40 Eos % (Auto) 4.9 % (0.9-2.9) H 11/23/21 04:40 Baso % (Auto) 0.8 % (0.2-1.0) 11/23/21 04:40 Neut # (Auto) 3.6 x10^3/uL (2.2-4.8) 11/23/21 04:40 Lymph # (Auto) 1.2 X10^3/uL (1.3-2.9) L 11/23/21 04:40 Millard # (Auto) 0.7 x10^3/uL (0.3-0.8) 11/23/21 04:40 Eos # (Auto) 0.3 x10^3/uL (0.0-0.2) H 11/23/21 04:40 Baso # (Auto) 0.0 X10^3/uL (0.0-0.1) 11/23/21 04:40 Absolute Nucleated RBC 0.1 /100WBC 11/23/21 04:40 Sodium 134 mmol/L (136-145) L 11/23/21 04:40 Corrected Sodium 135 mmol/L (136-145) L 11/23/21 04:40 Potassium 3.7 mmol/L (3.5-5.1) 11/23/21 04:40 Chloride 100 mmol/L (98-107) 11/23/21 04:40 Carbon Dioxide 23.0 mmol/L (21-32) 11/23/21 04:40 BUN 15 mg/dL (7-18) 11/23/21 04:40 Creatinine 1.08 mg/dL (0.70-1.30) 11/23/21 04:40 Est GFR (MDRD) Af Amer > 60 (>60) 11/23/21 04:40 Est GFR (MDRD) Non-Af > 60 (>60) 11/23/21 04:40 Glucose 131 mg/dL (65-99) H 11/23/21 04:40 POC Glucose (mg/dL) 128 mg/dL (65-99) H 11/23/21 05:29 Calcium 8.3 mg/dL (8.5-10.1) L 11/23/21 04:40 Corrected Calcium 8.9 mg/dL (8.5-10.1) 11/23/21 04:40 Total Bilirubin 0.40 mg/dL (0.2-1.0) 11/23/21 04:40 AST 14 Units/L (15-37) L 11/23/21 04:40 ALT 6 Units/L (12-78) L 11/23/21 04:40 Alkaline Phosphatase 38 Units/L (46-116) L 11/23/21 04:40 Total Protein 7.2 g/dL (6.4-8.2) 11/23/21 04:40 Albumin 3.2 g/dL (3.4-5.0) L 11/23/21 04:40 Globulin 4.0 g/dL (2.5-4.5) 11/23/21 04:40 Albumin/Globulin Ratio 0.8 Ratio (1.1-2.1) L 11/23/21 04:40 - Plan (1) Closed lumbar vertebral fracture Status: Acute Qualifiers: Encounter type: initial encounter Lumbar vertebra fracture level: L1 Fracture morphology: other fracture Qualified Code(s): S32.018A - Other fracture of first lumbar vertebra, initial encounter for closed fracture Plan: NORMAL SALINE AT 75 ML/HR, NORCO 5/325MG PO Q4H PRN, MORPHINE SULFATE 2MG IV Q4H PRN, LOVENOX 40MG SC DAILY, AMLODIPINE 5MG DAILY, AND HIS HOME MEDI CATIONS WERE RESUMED. PT/OT (2) Acute right hip pain Status: Acute (3) Frequent falls Status: Acute (4) Generalized weakness Status: Acute (5) Hypertension Status: Chronic Qualifiers: Hypertension type: primary hypertension Qualified Code(s): I10 - Essential (primary) hypertension (6) DM type 2 (diabetes mellitus, type 2) Status: Chronic Qualifiers: Diabetes mellitus terminal operations supervisor insulin use: with terminal operations supervisor use Diabetes mellitus complication status: with hyperglycemia Qualified Code(s): E11.65 - Type 2 diabetes mellitus with hyperglycemia; Z79.4 - termite renewal inspector (current) use of insulin (7) History of Parkinson's disease Status: Chronic (8) Hyperlipemia Status: Chronic Qualifiers: Hyperlipidemia type: mixed hyperlipidemia
[2021-11-23] MEDS: CRESTOR TAB 10 MG PO SCH (21:22)
[2021-11-23] MEDS: OXYBUTYNIN CHLORIDE ER PO SCH (21:23)
[2021-11-23] MEDS: SEROquel TAB 25 mg PO SCH (21:23)
[2021-11-24] MEDS: NS 1,000 ML IV 1,000 ML IV SCH ×3 (00:31→13:11)
[2021-11-24] MEDS: SINEMET (PLAIN) 25/100 MG PO SCH ×3 (02:58→14:02)
[2021-11-24 06:21] LABS: BASOPHILS # (AUTO) 0.1 X10^3/uL (0.0-0.1); BASOPHILS % (AUTO) 0.8 % (0.2-1.0); EOSINOPHILS # (AUTO) 0.3 x10^3/uL (0.0-0.2); EOSINOPHILS % (AUTO) 4.8 % (0.9-2.9); HEMOGLOBIN 11.4 g/dL (13.5-18.0); LYMPHOCYTES # (AUTO) 1.5 X10^3/uL (1.3-2.9); LYMPHOCYTES % (AUTO) 20.7 % (21.0-51.0); MEAN CORPUSCULAR HEMOGLOBIN 27.6 pg (27.0-34.0); MEAN CORPUSCULAR HGB CONC 34.7 g/dL (33.0-35.0); MEAN CORPUSCULAR VOLUME 79.4 fL (80.0-100.0); MEAN PLATELET VOLUME 7.1 fL (7.4-11.0); MONOCYTES # (AUTO) 0.7 x10^3/uL (0.3-0.8); MONOCYTES % (AUTO) 9.8 % (0.0-13.0); NEUTROPHILS # (AUTO) 4.6 x10^3/uL (2.2-4.8); NEUTROPHILS % (AUTO) 63.9 % (42.0-75.0); RED BLOOD COUNT 4.15 X10^6/uL (4.7-6.0); RED CELL DISTRIBUTION WIDTH 13.6 % (11.6-16.5); WHITE BLOOD COUNT 7.1 X10^3/uL (3.6-10.0)
[2021-11-24 06:46] LABS: ALANINE AMINOTRANSFERASE 6 Units/L (12-78); ALKALINE PHOSPHATASE 39 Units/L (46-116); ASPARTATE AMINO TRANSFERASE 15 Units/L (15-37); BLOOD UREA NITROGEN 24 mg/dL (7-18); CALCIUM 8.2 mg/dL (8.5-10.1); CARBON DIOXIDE 22.3 mmol/L (21-32); CHLORIDE 100 mmol/L (98-107); COR NA(FOR HYPERGLY) 134 mmol/L (136-145); CREATININE 1.11 mg/dL (0.70-1.30); SODIUM 133 mmol/L (136-145); eGFR NON BLACK RACES > 60 (>60)
[2021-11-24] MEDS ORDERED: GLUCOPHAGE ONE (08:52)
[2021-11-24] MEDS: GLUCOPHAGE PO SCH (08:53)
[2021-11-24] MEDS: ASPIRIN EC 81 MG PO SCH (08:53)
[2021-11-24] MEDS: LOVENOX INJ 40 MG SYR SC SCH (08:53)
[2021-11-24] MEDS: VITAMIN D3 125 mcg (5,000 UNITS) PO SCH (08:54)
[2021-11-24] MEDS ORDERED: MILK OF MAGNESIA PO SCH (09:00)
[2021-11-24] MEDS ORDERED: NORVASC TAB 5 MG PO SCH (09:00)
[2021-11-24] MEDS ORDERED: NORVASC TAB 5 MG ONE (09:12)
--- NOTE | 2021-11-24 12:17 | RAD ---
HISTORYCONFIRM ABSCENCE OR PRESENCE OF TB, PRISON PLACEMENTSTUDYCHEST, 1 [id number] cardiomediastinal silhouette is stable. No acute airspace disease. No pneumothorax or effusion. The bony thorax appears intact.IMPRESSIONNo acute cardiopulmonary disease.Electronically signed by: KESHA CALLEJAS (Nov 24, 2021 12:17:49)
[2021-11-24 12:20] VITALS: BP 165/79
[2021-11-24] MEDS ORDERED: COLACE CAP 100 MG PO SCH (21:00)
== END 2021-11-24 15:40 ==
LOC: ER 11:13 → MED/SURG 11:13
PROVIDERS: ADMIT Internal Medicine; ATTEND Internal Medicine
DX: I10 Essential (primary) hypertension; Z79.4 Long term (current) use of insulin; M25.551 Pain in right hip; Z91.81 History of falling; G20 Parkinson's disease; Y92.9 Unspecified place or not applicable; S32.019A Unspecified fracture of first lumbar vertebra, initial encounter for closed fracture; R13.11 Dysphagia, oral phase; E78.5 Hyperlipidemia, unspecified; R53.1 Weakness; G89.11 Acute pain due to trauma; R26.89 Other abnormalities of gait and mobility; R41.0 Disorientation, unspecified; E11.65 Type 2 diabetes mellitus with hyperglycemia; W19.XXXA Unspecified fall, initial encounter; U07.1 COVID-19; F02.80 Dementia in other diseases classified elsewhere, unspecified severity, without behavioral disturbance, psychotic disturbance, mood disturbance, and anxiety; Y93.9 Activity, unspecified